=== PATIENT | male | born 1935 | race Two or more races ===

== ENCOUNTER 2016-05-24 11:54 | Emergency (ER) | payer MEDICARE, BC ==
[2016-05-24 12:59] LABS: Basophils % (A) 0 %; CH 29.7; CHCM 31.5; Eosinophils # (A) 0.1 k/uL (0-0.7); Eosinophils % (A) 3 %; HCT 40.4 % (39.0-53.0); HGB 12.7 gm/dL (13.0-17.5); Hypochromasia Slight; Luc # (Auto) 0.12; Luc % (Auto) 3; Lymphocytes # (A) 0.8 k/uL (1.0-4.8); Lymphocytes % (A) 19 %; MCH 29.9 pg (25.0-35.0); MCHC 31.6 g/dL (31.0-37.0); MCV 94.7 fL (80.0-100.0); Mean Platelet Volume 7.9; Monocytes # (A) 0.2 k/uL (0-1.0); Monocytes % (A) 5 %; Neutrophils # (A) 2.9 k/uL (1.3-7.7); Neutrophils % (A) 69 %; RBC 4.27 m/uL (4.30-5.90); RDW 13.8 % (11.5-15.5); WBC 4.2 k/uL (3.8-10.6); WBC (Perox) 4.12
[2016-05-24 13:07] LABS: Anion Gap 9 mmol/L; Blood Urea Nitrogen 21 mg/dL (9-20); Calcium 9.9 mg/dL (8.4-10.2); Carbon Dioxide 32 mmol/L (22-30); Chloride 103 mmol/L (98-107); Glucose 96 mg/dL (74-99); Non-African American GFR(MDRD) 59 (>60 ml/min/1.73 sqM); Partial Thromboplastin Time 32.1 sec (22.0-30.0); Potassium 4.5 mmol/L (3.5-5.1); Prothrombin Time 19.7 sec (9.0-12.0); Sodium 144 mmol/L (137-145)
--- NOTE | 2016-05-24 13:27 | US ---
EXAMINATION TYPE: US venous doppler duplex LE RT DATE OF EXAM: 05/24/2016 1:13 PM COMPARISON: NONE CLINICAL HISTORY: Pain. rashing and slight swelling in the right leg SIDE PERFORMED: Right VESSELS IMAGED: External Iliac Vein (EIV) Common Femoral Vein Deep Femoral Vein Greater Saphenous Vein * Femoral Vein Popliteal Vein Small Saphenous Vein * Proximal Calf Veins (* superficial vessels) TECHNOLOGIST IMPRESSION: wnl Right Leg: Negative for DVT IMPRESSION: Normal exam. No evidence of deep venous thrombosis in the left leg.
--- NOTE | 2016-05-24 13:55 | ED ---
Skin/Abscess/FB HPI - General Chief complaint: Skin/Abscess/Foreign Body Stated complaint: rash Time Seen by Provider: 05/24/16 12:25 Source: patient, RN notes reviewed Mode of arrival: ambulatory Limitations: no limitations - History of Present Illness Initial comments: 81-year-old male presents emergency Department chief complaint rash to his left hand has been there for approximately 2 weeks. Patient states that he put some Pily lotion which makes it feel better. Patient states it's not getting better and states it's not getting much worse. Patient states there is no pain to at this time. Denies spinning any chemicals or any brunson that area. Patient states that he did not use any new soaps lotions or detergents prior to it. Denies any other symptoms by the have a similar rash. He does state that his right leg is swollen in which he bumped his pryor a few days ago. Patient states it's swollen from there to his foot. He states he has. Minimal pain states it just feels achy. Patient denies any chest pain or shortness breath. Patient states she does take Coumadin for chronic atrial fibrillation. Patient states his most recent INR was 2.0. Patient states he has been taking as prescribed. Patient denies fever, chills. - Related Data Home Medications Medication Instructions Recorded Confirmed Levothyroxine Sodium [Synthroid] 50 mcg PO DAILY 09/13/13 05/24/16 Temazepam 30 mg PO HS 09/13/13 05/24/16 Acetaminophen Tab [Tylenol Tab] 650 mg PO BID PRN 05/24/16 05/24/16 Cholecalciferol [Vitamin D3] 2,000 unit PO DAILY 05/24/16 05/24/16 Ferrous Sulfate [Feosol] 325 mg PO DAILY 05/24/16 05/24/16 Warfarin [Coumadin] 2.5 mg PO FR 05/24/16 05/24/16 Warfarin [Coumadin] 5 mg PO SUMOTUWETHSA 05/24/16 05/24/16 Previous Rx's Medication Instructions Recorded Mupirocin 2% Oint [Bactroban 2% 1 applic TOPICAL TID #22 gm 05/24/16 Oint] Triamcinolone 0.1% Cream [Kenalog] 1 applicatio TOPICAL BID #15 gram 05/24/16 Allergies Allergy/AdvReac Type Severity Reaction Status Date / Time No Known Allergies Allergy Verified 05/24/16 13:20 Review of Systems ROS Statement: Those systems with pertinent positive or pertinent negative responses have been documented in the HPI. ROS Other: All systems not noted in ROS Statement are negative. Past Medical History Past Medical History: Atrial Fibrillation, GERD/Reflux, Hearing Disorder / Deafness, Thyroid Disorder Additional Past Medical History / Comment(s): HIATAL HERNIA History of Any Multi-Drug Resistant Organisms: None Reported Past Surgical History: Ear Surgery Additional Past Surgical History / Comment(s): STENT X2 IN LEFT EAR Past Anesthesia/Blood Transfusion Reactions: No Reported Reaction Past Psychological History: No Psychological Hx Reported Smoking Status: Former smoker Past Alcohol Use History: None Reported Past Drug Use History: None Reported General Exam Limitations: no limitations Course Vital Signs 05/24/16 11:59 Temperature 98.2 F Pulse Rate 68 Respiratory 20 Rate Blood Pressure 125/78 O2 Sat by Pulse 98 Oximetry Medical Decision Making - Lab Data Result diagrams: 05/24/16 12:48 05/24/16 12:48 Lab Results 05/24/16 05/24/16 05/24/16 Range/Units 12:48 12:48 12:48 WBC 4.2 (3.8-10.6) k/uL RBC 4.27 L (4.30-5.90) m/uL Hgb 12.7 L (13.0-17.5) gm/dL Hct 40.4 (39.0-53.0) % MCV 94.7 (80.0-100.0) fL MCH 29.9 (25.0-35.0) pg MCHC 31.6 (31.0-37.0) g/dL RDW 13.8 (11.5-15.5) % Plt Count 133 L (150-450) k/uL Neutrophils % 69 % Lymphocytes % 19 % Monocytes % 5 % Eosinophils % 3 % Basophils % 0 % Neutrophils # 2.9 (1.3-7.7) k/uL Lymphocytes # 0.8 L (1.0-4.8) k/uL Monocytes # 0.2 (0-1.0) k/uL Eosinophils # 0.1 (0-0.7) k/uL Basophils # 0.0 (0-0.2) k/uL Hypochromasia Slight PT 19.7 H (9.0-12.0) sec INR 2.0 (<1.1) APTT 32.1 H (22.0-30.0) sec Sodium 144 (137-145) mmol/L Potassium 4.5 (3.5-5.1) mmol/L Chloride 103 (98-107) mmol/L Carbon Dioxide 32 H (22-30) mmol/L Anion Gap 9 mmol/L BUN 21 H (9-20) mg/dL Creatinine 1.19 (0.66-1.25) mg/dL Est GFR (MDRD) Af Amer >60 (>60 ml/min/1.73 sqM) Est GFR (MDRD) Non-Af 59 (>60 ml/min/1.73 sqM) Glucose 96 (74-99) mg/dL Calcium 9.9 (8.4-10.2) mg/dL Disposition Clinical Impression: Hand dermatitis, Leg swelling Disposition: HOME SELF-CARE Condition: Stable Instructions: Dermatitis (ED) Additional Instructions: Please return to the Emergency Department if symptoms worsen or any other concerns. Prescriptions: Mupirocin 2% Oint [Bactroban 2% Oint] 1 applic TOPICAL TID #22 gm Triamcinolone 0.1% Cream [Kenalog] 1 applicatio TOPICAL BID #15 gram Time of Disposition: 13:54
[2016-05-24 14:28] VITALS: BP 166/72; PULSE 63; RESP 18; TEMP 98
== END 2016-05-24 14:47 | disposition home or self-care (01) ==
LOC: EC 11:54
DX: L30.9 Dermatitis, unspecified (principal); M79.89 Other specified soft tissue disorders; K21.9 Gastro-esophageal reflux disease without esophagitis; Z79.899 Other long term (current) drug therapy; I48.91 Unspecified atrial fibrillation; E07.9 Disorder of thyroid, unspecified; Z79.01 Long term (current) use of anticoagulants; Z87.891 Personal history of nicotine dependence
CPT/HCPCS: 36415; 80048; 85025; 85610; 85730; 99283

== ENCOUNTER 2016-09-07 15:37 | Observation (INO) | payer MEDICARE, BC ==
[2016-09-07] MEDS ORDERED: SODIUM CHLORIDE 0.9% 1,000 ML IV STA ×2 (15:46)
--- NOTE | 2016-09-07 15:48 | ED ---
General Adult HPI - General Stated complaint: Chest & Abdominal Pain Time Seen by Provider: 09/07/16 15:46 Source: RN notes reviewed, old records reviewed - History of Present Illness Initial comments: This is an 79-year-old male to the ER for evaluation different types of pain, chest pain about the about. Back left upper quadrant around his heart. Into his shoulder. Pain is worse with activity worse with movement. No fevers cough or congestion or travel history. Does have history of similar pain but unsure of all is the cause. At this time patient admits to mild shortness of breath worse when he tries to take a deep breath. No nausea vomiting or diarrhea. - Related Data Home Medications Medication Instructions Recorded Confirmed Levothyroxine Sodium [Synthroid] 50 mcg PO DAILY 09/13/13 09/07/16 Temazepam 30 mg PO HS 09/13/13 09/07/16 Acetaminophen Tab [Tylenol Tab] 650 mg PO BID PRN 05/24/16 09/07/16 Cholecalciferol [Vitamin D3] 2,000 unit PO DAILY 05/24/16 09/07/16 Ferrous Sulfate [Feosol] 325 mg PO Q48H 05/24/16 09/07/16 Warfarin [Coumadin] 5 mg PO HS 05/24/16 09/07/16 Allergies Allergy/AdvReac Type Severity Reaction Status Date / Time No Known Allergies Allergy Verified 09/07/16 20:26 Review of Systems ROS Statement: Those systems with pertinent positive or pertinent negative responses have been documented in the HPI. ROS Other: All systems not noted in ROS Statement are negative. Past Medical History Past Medical History: Atrial Fibrillation, GERD/Reflux, Hearing Disorder / Deafness, Thyroid Disorder Additional Past Medical History / Comment(s): HIATAL HERNIA History of Any Multi-Drug Resistant Organisms: None Reported Past Surgical History: Ear Surgery Additional Past Surgical History / Comment(s): STENT X2 IN LEFT EAR Past Anesthesia/Blood Transfusion Reactions: No Reported Reaction Past Psychological History: No Psychological Hx Reported Smoking Status: Former smoker Past Alcohol Use History: None Reported Past Drug Use History: None Reported - Past Family History Father Family Medical History: Cancer Brother(s) Family Medical History: Diabetes Mellitus General Exam General appearance: alert, in no apparent distress Head exam: Present: atraumatic, normocephalic, normal inspection Eye exam: Present: normal appearance, PERRL, EOMI. Absent: scleral icterus, conjunctival injection, periorbital swelling ENT exam: Present: normal exam, mucous membranes moist Neck exam: Present: normal inspection. Absent: tenderness, meningismus, lymphadenopathy Respiratory exam: Present: normal lung sounds bilaterally. Absent: respiratory distress, wheezes, rales, rhonchi, stridor Cardiovascular Exam: Present: regular rate, normal rhythm, normal heart sounds. Absent: systolic murmur, diastolic murmur, rubs, gallop, clicks GI/Abdominal exam: Present: soft, normal bowel sounds. Absent: distended, tenderness, guarding, rebound, rigid Extremities exam: Present: normal inspection, full ROM, normal capillary refill. Absent: tenderness, pedal edema, joint swelling, calf tenderness Back exam: Present: normal inspection Neurological exam: Present: alert, oriented X3, CN II-XII intact Psychiatric exam: Present: normal affect, normal mood Skin exam: Present: warm, dry, intact, normal color. Absent: rash Course Vital Signs 09/07/16 09/07/16 09/07/16 15:50 17:00 18:09 Temperature 98.8 F 98.0 F Pulse Rate 71 72 73 Respiratory 18 16 16 Rate Blood Pressure 221/98 165/77 170/84 O2 Sat by Pulse 98 100 99 Oximetry 09/07/16 19:28 Temperature 98.1 F Pulse Rate Respiratory Rate Blood Pressure O2 Sat by Pulse Oximetry EKG Findings - EKG Comments: EKG Findings:: EKG shows a rate of 68, QRS 94, QTC 391 Medical Decision Making - Lab Data Result diagrams: 09/08/16 09:17 09/07/16 16:05 Lab Results 09/07/16 09/07/16 09/07/16 Range/Units 16:05 16:05 16:05 WBC 6.0 (3.8-10.6) k/uL RBC 4.66 (4.30-5.90) m/uL Hgb 13.4 (13.0-17.5) gm/dL Hct 42.2 (39.0-53.0) % MCV 90.6 (80.0-100.0) fL MCH 28.9 (25.0-35.0) pg MCHC 31.9 (31.0-37.0) g/dL RDW 13.0 (11.5-15.5) % Plt Count 128 L (150-450) k/uL Neutrophils % 76 % Lymphocytes % 13 % Monocytes % 8 % Eosinophils % 1 % Basophils % 0 % Neutrophils # 4.6 (1.3-7.7) k/uL Lymphocytes # 0.8 L (1.0-4.8) k/uL Monocytes # 0.5 (0-1.0) k/uL Eosinophils # 0.1 (0-0.7) k/uL Basophils # 0.0 (0-0.2) k/uL PT (9.0-12.0) sec INR (<1.1) APTT (22.0-30.0) sec D-Dimer (<0.60) mg/L FEU Sodium 138 (137-145) mmol/L Potassium 4.8 (3.5-5.1) mmol/L Chloride 100 (98-107) mmol/L Carbon Dioxide 29 (22-30) mmol/L Anion Gap 9 mmol/L BUN 28 H (9-20) mg/dL Creatinine 1.23 (0.66-1.25) mg/dL Est GFR (MDRD) Af Amer >60 (>60 ml/min/1.73 sqM) Est GFR (MDRD) Non-Af 56 (>60 ml/min/1.73 sqM) Glucose 108 H (74-99) mg/dL Plasma Lactic Acid Saleem (0.7-2.0) mmol/L Calcium 10.6 H (8.4-10.2) mg/dL Phosphorus 3.6 (2.5-4.5) mg/dL Magnesium 1.5 L (1.6-2.3) mg/dL Total Bilirubin 1.3 (0.2-1.3) mg/dL AST 26 (17-59) U/L ALT 28 (21-72) U/L Alkaline Phosphatase 78 (38-126) U/L Total Creatine Kinase 128 (55-170) U/L CK-MB (CK-2) 5.9 H* (0.0-2.4) ng/mL CK-MB (CK-2) Rel Index 4.6 Troponin I <0.012 (0.000-0.034) ng/mL Total Protein 6.9 (6.3-8.2) g/dL Albumin 4.1 (3.5-5.0) g/dL Lipase 36 (23-300) U/L 09/07/16 09/07/16 09/07/16 Range/Units 16:05 16:05 16:05 WBC (3.8-10.6) k/uL RBC (4.30-5.90) m/uL Hgb (13.0-17.5) gm/dL Hct (39.0-53.0) % MCV (80.0-100.0) fL MCH (25.0-35.0) pg MCHC (31.0-37.0) g/dL RDW (11.5-15.5) % Plt Count (150-450) k/uL Neutrophils % % Lymphocytes % % Monocytes % % Eosinophils % % Basophils % % Neutrophils # (1.3-7.7) k/uL Lymphocytes # (1.0-4.8) k/uL Monocytes # (0-1.0) k/uL Eosinophils # (0-0.7) k/uL Basophils # (0-0.2) k/uL PT 17.1 H (9.0-12.0) sec INR 1.8 (<1.1) APTT 26.6 (22.0-30.0) sec D-Dimer <0.17 (<0.60) mg/L FEU Sodium (137-145) mmol/L Potassium (3.5-5.1) mmol/L Chloride (98-107) mmol/L Carbon Dioxide (22-30) mmol/L Anion Gap mmol/L BUN (9-20) mg/dL Creatinine (0.66-1.25) mg/dL Est GFR (MDRD) Af Amer (>60 ml/min/1.73 sqM) Est GFR (MDRD) Non-Af (>60 ml/min/1.73 sqM) Glucose (74-99) mg/dL Plasma Lactic Acid Saleem 1.0 (0.7-2.0) mmol/L Calcium (8.4-10.2) mg/dL Phosphorus (2.5-4.5) mg/dL Magnesium (1.6-2.3) mg/dL Total Bilirubin (0.2-1.3) mg/dL AST (17-59) U/L ALT (21-72) U/L Alkaline Phosphatase (38-126) U/L Total Creatine Kinase (55-170) U/L CK-MB (CK-2) (0.0-2.4) ng/mL CK-MB (CK-2) Rel Index Troponin I (0.000-0.034) ng/mL Total Protein (6.3-8.2) g/dL Albumin (3.5-5.0) g/dL Lipase (23-300) U/L Disposition Clinical Impression: Chest pain Disposition: ADMITTED IP TO THIS HOSP
[2016-09-07 16:20] LABS: Basophils % (A) 0 %; CH 29.3; CHCM 32.5; Eosinophils # (A) 0.1 k/uL (0-0.7); Eosinophils % (A) 1 %; HCT 42.2 % (39.0-53.0); HDW 2.77; HGB 13.4 gm/dL (13.0-17.5); Luc % (Auto) 2; Lymphocytes # (A) 0.8 k/uL (1.0-4.8); Lymphocytes % (A) 13 %; MCH 28.9 pg (25.0-35.0); MCHC 31.9 g/dL (31.0-37.0); MCV 90.6 fL (80.0-100.0); Mean Platelet Volume 7.2; Monocytes # (A) 0.5 k/uL (0-1.0); Monocytes % (A) 8 %; Neutrophils # (A) 4.6 k/uL (1.3-7.7); Neutrophils % (A) 76 %; RBC 4.66 m/uL (4.30-5.90); WBC (Perox) 5.72
[2016-09-07 16:27] LABS: ALT 28 U/L (21-72); AST 26 U/L (17-59); Alkaline Phosphatase 78 U/L (38-126); Anion Gap 9 mmol/L; Blood Urea Nitrogen 28 mg/dL (9-20); Calcium 10.6 mg/dL (8.4-10.2); Carbon Dioxide 29 mmol/L (22-30); Chloride 100 mmol/L (98-107); Glucose 108 mg/dL (74-99); Magnesium 1.5 mg/dL (1.6-2.3); Non-African American GFR(MDRD) 56 (>60 ml/min/1.73 sqM); Phosphorous 3.6 mg/dL (2.5-4.5); Potassium 4.8 mmol/L (3.5-5.1); Sodium 138 mmol/L (137-145); Total Bilirubin 1.3 mg/dL (0.2-1.3); Total Protein 6.9 g/dL (6.3-8.2)
[2016-09-07 16:32] LABS: INR 1.8 (<1.1); Partial Thromboplastin Time 26.6 sec (22.0-30.0); Prothrombin Time 17.1 sec (9.0-12.0)
--- NOTE | 2016-09-07 16:48 | XR ---
EXAMINATION TYPE: XR abdomen acute w cxr DATE OF EXAM: 09/07/2016 4:39 PM CLINICAL HISTORY: Chest and abdominal pain, history of hypertension. TECHNIQUE: Single frontal view of chest is obtained. Supine and upright views of the abdomen are acq uired. COMPARISON: Chest x-ray January 14, 2012. FINDINGS: Underlying emphysematous change is present. Cardiac silhouette size appears mildly enlarged . Retrocardiac opacity consistent with large hiatal hernia or intrathoracic stomach is redemonstrated . Adjacent left basilar atelectatic change is present. Osseous structures are intact. Gas is noted in nondistended small bowel loops. Gas and fecal material is seen in nondistended colon . No pneumoperitoneum, visceromegaly, or suspicious calcification is identified. The osseous struc tures are intact. IMPRESSION: 1. Cardiomegaly and chronic emphysematous change without suspicious acute pulmonary process. 2. Overall nonspecific but likely nonobstructive bowel gas pattern. Large hiatal hernia redemonstrate d.
[2016-09-07 16:50] LABS: Creatine Kinase 128 U/L (55-170)
[2016-09-07] MEDS ORDERED: MORPHINE SULFATE 4 MG/ML SYRINGE IVP STA (17:02)
[2016-09-07 17:03] LABS: Troponin I <0.012 ng/mL (0.000-0.034)
[2016-09-07 17:05] LABS: Creatine Kinase MB 5.9 ng/mL (0.0-2.4)
[2016-09-07] MEDS ORDERED: RX INFO: IV CONTRAST WAS GIVEN 1 EACH MISC MISCELLANE PRN (17:09)
--- NOTE | 2016-09-07 18:26 | CT ---
EXAMINATION TYPE: CT angio chest DATE OF EXAM: 09/07/2016 5:55 PM COMPARISON: NONE HISTORY: Left sided chest pressure and abdominal pain. CT DLP: 1774.40 mGycm. Automated Exposure Control for Dose Reduction was Utilized. CONTRAST: CTA scan of the thorax is performed with IV Contrast, patient injected with 80 mL of Visipaque 320, p ulmonary embolism protocol. MIP Images are created on CT scanner and reviewed. FINDINGS: LUNGS: Moderate paraseptal emphysematous changes are seen. There is a partial intrathoracic stomach w ith herniation of abdominal fat into the mediastinum creating segmental left lower lung atelectasis. There are low lung volumes with elevation of both hemidiaphragms. Heart size is within normal limits. Biapical pleural-parenchymal thickening is noted. There is no pleural effusion or pneumothorax seen. The tracheobronchial tree is patent. MEDIASTINUM: There is satisfactory enhancement of the pulmonary artery and its branches, there is no CT evidence for pulmonary embolism. There are no greater than 1 cm hilar or mediastinal lymph nodes. No cardiomegaly or pericardial effusion is seen. OTHER: No additional significant abnormality is seen. IMPRESSION: 1. No evidence of pulmonary embolus. 2. Moderate paraseptal emphysematous changes. 3. 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
--- NOTE | 2016-09-07 18:31 | CT ---
EXAMINATION TYPE: CT abdomen pelvis w con DATE OF EXAM: 09/07/2016 5:55 PM COMPARISON: NONE HISTORY: Left sided chest pressure and abdominal pain. CT DLP: 1774.40 mGycm Automated exposure control for dose reduction was used. TECHNIQUE: Helical acquisition of images was performed from the lung bases through the pelvis. CONTRAST: Performed without Oral Contrast and with IV Contrast, patient injected with 80 mL of Visipaque 320. FINDINGS: LUNG BASES: As described on the CT PE study of the same day. Intrathoracic stomach and left lower lob e segmental atelectasis. LIVER/GB: No significant abnormality is appreciated. PANCREAS: There is pancreatic atrophy. SPLEEN: No significant abnormality is seen. ADRENALS: No significant abnormality is seen. KIDNEYS: Left upper pole 2.0 cm renal cyst. Otherwise the kidneys enhance symmetrically. FREE AIR: No free air is visualized. RETROPERITONEAL ADENOPATHY: None visualized REPRODUCTIVE ORGANS: The prostate gland is heterogenous but nonenlarged. URINARY BLADDER: No significant abnormality is seen. PELVIC ADENOPATHY: None visualized. OSSEOUS STRUCTURES: Degenerative changes are present of the thoracolumbar and lumbosacral spine as v isualized. BOWEL: Sigmoid diverticulosis without evidence of diverticulitis. OTHER: Abdominal aorta is of normal course and caliber with atheromatous changes of the abdominal aor ta and its branches. There is an umbilical hernia containing fat with a wide neck measuring approxima tely 2.6 cm. IMPRESSION: 1. NO ACUTE INTRA-ABDOMINAL PROCESS 2. 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
--- NOTE | 2016-09-07 18:58 | ED ---
Medical Decision Making - Medical Decision Making CAT scan shows no pulmonary embolism. I went back in to see the patient he stated that he was not currently having chest pain but it was concerning him earlier in the evening. I spoke with others are Dr. Dudley agreed to admit the patient. He was in agreement not to start heparin on the patient. - Lab Data Result diagrams: 09/07/16 16:05 09/07/16 16:05 Lab Results 09/07/16 09/07/16 09/07/16 Range/Units 16:05 16:05 16:05 WBC 6.0 (3.8-10.6) k/uL RBC 4.66 (4.30-5.90) m/uL Hgb 13.4 (13.0-17.5) gm/dL Hct 42.2 (39.0-53.0) % MCV 90.6 (80.0-100.0) fL MCH 28.9 (25.0-35.0) pg MCHC 31.9 (31.0-37.0) g/dL RDW 13.0 (11.5-15.5) % Plt Count 128 L (150-450) k/uL Neutrophils % 76 % Lymphocytes % 13 % Monocytes % 8 % Eosinophils % 1 % Basophils % 0 % Neutrophils # 4.6 (1.3-7.7) k/uL Lymphocytes # 0.8 L (1.0-4.8) k/uL Monocytes # 0.5 (0-1.0) k/uL Eosinophils # 0.1 (0-0.7) k/uL Basophils # 0.0 (0-0.2) k/uL PT (9.0-12.0) sec INR (<1.1) APTT (22.0-30.0) sec D-Dimer (<0.60) mg/L FEU Sodium 138 (137-145) mmol/L Potassium 4.8 (3.5-5.1) mmol/L Chloride 100 (98-107) mmol/L Carbon Dioxide 29 (22-30) mmol/L Anion Gap 9 mmol/L BUN 28 H (9-20) mg/dL Creatinine 1.23 (0.66-1.25) mg/dL Est GFR (MDRD) Af Amer >60 (>60 ml/min/1.73 sqM) Est GFR (MDRD) Non-Af 56 (>60 ml/min/1.73 sqM) Glucose 108 H (74-99) mg/dL Plasma Lactic Acid Saleem (0.7-2.0) mmol/L Calcium 10.6 H (8.4-10.2) mg/dL Phosphorus 3.6 (2.5-4.5) mg/dL Magnesium 1.5 L (1.6-2.3) mg/dL Total Bilirubin 1.3 (0.2-1.3) mg/dL AST 26 (17-59) U/L ALT 28 (21-72) U/L Alkaline Phosphatase 78 (38-126) U/L Total Creatine Kinase 128 (55-170) U/L CK-MB (CK-2) 5.9 H* (0.0-2.4) ng/mL CK-MB (CK-2) Rel Index 4.6 Troponin I <0.012 (0.000-0.034) ng/mL Total Protein 6.9 (6.3-8.2) g/dL Albumin 4.1 (3.5-5.0) g/dL Lipase 36 (23-300) U/L 09/07/16 09/07/16 09/07/16 Range/Units 16:05 16:05 16:05 WBC (3.8-10.6) k/uL RBC (4.30-5.90) m/uL Hgb (13.0-17.5) gm/dL Hct (39.0-53.0) % MCV (80.0-100.0) fL MCH (25.0-35.0) pg MCHC (31.0-37.0) g/dL RDW (11.5-15.5) % Plt Count (150-450) k/uL Neutrophils % % Lymphocytes % % Monocytes % % Eosinophils % % Basophils % % Neutrophils # (1.3-7.7) k/uL Lymphocytes # (1.0-4.8) k/uL Monocytes # (0-1.0) k/uL Eosinophils # (0-0.7) k/uL Basophils # (0-0.2) k/uL PT 17.1 H (9.0-12.0) sec INR 1.8 (<1.1) APTT 26.6 (22.0-30.0) sec D-Dimer <0.17 (<0.60) mg/L FEU Sodium (137-145) mmol/L Potassium (3.5-5.1) mmol/L Chloride (98-107) mmol/L Carbon Dioxide (22-30) mmol/L Anion Gap mmol/L BUN (9-20) mg/dL Creatinine (0.66-1.25) mg/dL Est GFR (MDRD) Af Amer (>60 ml/min/1.73 sqM) Est GFR (MDRD) Non-Af (>60 ml/min/1.73 sqM) Glucose (74-99) mg/dL Plasma Lactic Acid Saleem 1.0 (0.7-2.0) mmol/L Calcium (8.4-10.2) mg/dL Phosphorus (2.5-4.5) mg/dL Magnesium (1.6-2.3) mg/dL Total Bilirubin (0.2-1.3) mg/dL AST (17-59) U/L ALT (21-72) U/L Alkaline Phosphatase (38-126) U/L Total Creatine Kinase (55-170) U/L CK-MB (CK-2) (0.0-2.4) ng/mL CK-MB (CK-2) Rel Index Troponin I (0.000-0.034) ng/mL Total Protein (6.3-8.2) g/dL Albumin (3.5-5.0) g/dL Lipase (23-300) U/L Disposition Clinical Impression: Chest pain Disposition: ADMITTED IP TO THIS HOSP Referrals: Tanika Dudley MD [Primary Care Provider] - 1-2 days Time of Disposition: 18:58
[2016-09-07] MEDS ORDERED: NITROGLYCERIN SL TABS 0.4 MG TAB SUBLINGUAL PRN (19:01)
[2016-09-07 20:39] VITALS: BMI 23.7
[2016-09-07] MEDS: ACETAMINOPHEN TAB 325 MG TAB PO PRN (21:22)
[2016-09-07] MEDS ORDERED: ACETAMINOPHEN TAB 325 MG TAB PO PRN (22:23)
[2016-09-07] MEDS ORDERED: MAGNESIUM SULFATE-D5W PMX 1 GM in DEXTROSE/WATER 1 100ML.BAG IVPB ONE (22:25)
[2016-09-07] MEDS ORDERED: WARFARIN 5 MG TAB PO SCH (22:30)
[2016-09-07] MEDS ORDERED: TEMAZEPAM 30 MG CAP PO SCH (22:30)
[2016-09-07] MEDS: NITROGLYCERIN OINT 1 INCH/GM PACKET TOPICAL SCH (23:42)
[2016-09-08] LABS: Troponin I 0.016 ng/mL (0.000-0.034)
[2016-09-08 00:04] LABS: Creatine Kinase MB 5.8 ng/mL (0.0-2.4)
[2016-09-08 05:27] LABS: Cholesterol 126 mg/dL (<200); HDL Cholesterol 43 mg/dL (40-60); Triglycerides 83 mg/dL (<150)
[2016-09-08 05:27] LABS: Troponin I 0.013 ng/mL (0.000-0.034)
[2016-09-08 05:35] LABS: Creatine Kinase MB 4.5 ng/mL (0.0-2.4)
[2016-09-08] MEDS: NITROGLYCERIN OINT 1 INCH/GM PACKET TOPICAL SCH (06:28)
[2016-09-08] MEDS ORDERED: LEVOTHYROXINE 50 MCG TAB PO SCH (06:30)
[2016-09-08] MEDS: ACETAMINOPHEN TAB 325 MG TAB PO PRN (08:27)
[2016-09-08] MEDS ORDERED: WARFARIN 1 MG TAB PO ONE (08:30)
--- NOTE | 2016-09-08 08:52 | CONS ---
DATE OF CONSULTATION: This is an 81-year-old male patient of Dr. Dudley and sees Dr. Rodriges for atrial fibrillation. He comes in with predominantly left-sided abdominal discomfort. The ER notes state chest pain and abdominal pain, but when we actually asked the patient whether he is having chest pain or abdominal pain and what is his main problem, he points to the left side of the belly and he says, moves around, but mostly in the left side of the abdomen. He does not feel good when he has these episodes and he burps a lot at that time. His bowels are slightly irregular. but he has not had any breathing issues. His belly is certainly not tender. He does not have any chest wall tenderness. REVIEW OF SYSTEMS: No fever, chills or rigors. No cough or expectoration. No nausea, vomiting, or diarrhea. No hematuria, dysuria. No recent strokes or seizures. Past medical history of atrial fibrillation, hiatus hernia, thyroid disorder. SOCIAL HISTORY: He is a former smoker. ALLERGIES: No known drug allergies. Medications include Synthroid and warfarin. On examination, his vitals are stable. His blood pressure is normal 115/70 mmHg, pulse rate is in the 60s, afebrile, 97.7 degrees Fahrenheit. Head and neck examination is normal. Heart sounds S1, S2 are normal. No murmurs or gallops. No chest wall tenderness. Abdomen is soft, nontender. No guarding, no rigidity. Extremities are warm. No edema. A 12-lead ECG shows rate-controlled atrial fibrillation. Labs are reviewed. His white count is normal. His hemoglobin is normal. INR is subtherapeutic at 1.8. Cardiac enzymes are normal. CPK is elevated. MB is elevated. Troponins are normal. HDL is 43, LDL is 66, total cholesterol 126. Lipase is 36. IMPRESSION: 1. Vague abdominal discomfort. The patient cannot really describe. 2. Normal cardiac enzymes. No evidence for myocardial infarction. 3. Persistent rate controlled atrial fibrillation. A recent 24-hour Holter monitor in the office. Will get the records. Last ( ) he had a stress test, I will get the records from the office. I do not think this is cardiac. He is certainly not complaining of chest discomfort. His INR is subtherapeutic and the only consideration from a cardiovascular standpoint with vague abdominal discomforts would be recurrent embolism lodging in the abdominal vasculature because INR is subtherapeutic. As he simply does not have an acute abdomen, I will keep the INR therapeutic. His Coumadin dose should be adjusted upwards to 6 mg p.o. q.h.s. I will repeat his INR once again. From a cardiac standpoint, his INR should be maintained between 2 and 3 and further medical workup per Dr. Dudley. I will get the records from the office including the last stress test, echo and Holter monitor.
[2016-09-08] MEDS ORDERED: ASPIRIN 81 MG CHEW PO SCH (09:00)
[2016-09-08] MEDS ORDERED: ASPIRIN 325 MG TAB PO SCH (09:00)
[2016-09-08 10:18] LABS: INR 1.7 (<1.1); Prothrombin Time 16.7 sec (9.0-12.0)
[2016-09-08] MEDS ORDERED: HEPARIN SODIUM,PORCINE 5,000 UNIT/ML 1 ML VIAL IV PRN (10:43)
[2016-09-08 10:57] LABS: Basophils % (A) 0 %; CH 28.5; CHCM 30.7; Eosinophils # (A) 0.1 k/uL (0-0.7); Eosinophils % (A) 2 %; HCT 41.6 % (39.0-53.0); HDW 2.53; HGB 12.9 gm/dL (13.0-17.5); Hypochromasia Moderate; Luc % (Auto) 2; Lymphocytes # (A) 0.9 k/uL (1.0-4.8); Lymphocytes % (A) 16 %; MCH 28.8 pg (25.0-35.0); MCHC 30.9 g/dL (31.0-37.0); MCV 93.3 fL (80.0-100.0); Mean Platelet Volume 7.8; Monocytes # (A) 0.4 k/uL (0-1.0); Monocytes % (A) 7 %; Neutrophils # (A) 4.2 k/uL (1.3-7.7); Neutrophils % (A) 73 %; RBC 4.46 m/uL (4.30-5.90); RDW 13.3 % (11.5-15.5); WBC 5.7 k/uL (3.8-10.6); WBC (Perox) 5.76
[2016-09-08] MEDS ORDERED: HEPARIN SODIUM,PORCINE/D5W PMX 25,000 UNIT in DEXTROSE/WATER 1 500ML.BAG IV SCH (11:00)
[2016-09-08] MEDS ORDERED: CHOLECALCIFEROL 1,000 UNIT TAB PO SCH (12:00)
[2016-09-08 16:28] VITALS: BP 140/81; PULSE 71; RESP 16; TEMP 97.9
--- NOTE | 2016-09-08 17:48 | P.HPIM ---
History of Present Illness H&P Date: 09/08/16 Chief Complaint: Chest pain and epigastric pain Enrrique Cross is an 79-year-old male who presented to the ED for evaluation of chest pain and epigastric pain. Pain is worse with activity worse with movement. No fevers cough or congestion or travel history. At this time patient admits to mild shortness of breath worse when he tries to take a deep breath. No nausea vomiting or diarrhea. Patient has a known history of atrial fibrillation and is maintained on Coumadin his INR is subtherapeutic at 1.8 Past Medical History Past Medical History: Atrial Fibrillation, GERD/Reflux, Hearing Disorder / Deafness, Thyroid Disorder Additional Past Medical History / Comment(s): HIATAL HERNIA History of Any Multi-Drug Resistant Organisms: None Reported Past Surgical History: Ear Surgery Additional Past Surgical History / Comment(s): STENT X2 IN LEFT EAR Past Anesthesia/Blood Transfusion Reactions: No Reported Reaction Past Psychological History: No Psychological Hx Reported Smoking Status: Former smoker Past Alcohol Use History: None Reported Past Drug Use History: None Reported - Past Family History Father Family Medical History: Cancer Brother(s) Family Medical History: Diabetes Mellitus Medications and Allergies Home Medications Medication Instructions Recorded Confirmed Type Levothyroxine Sodium [Synthroid] 50 mcg PO DAILY 09/13/13 09/07/16 History Temazepam 30 mg PO HS 09/13/13 09/07/16 History Acetaminophen Tab [Tylenol Tab] 650 mg PO BID PRN 05/24/16 09/07/16 History Cholecalciferol [Vitamin D3] 2,000 unit PO DAILY 05/24/16 09/07/16 History Ferrous Sulfate [Feosol] 325 mg PO Q48H 05/24/16 09/07/16 History Warfarin [Coumadin] 5 mg PO HS 05/24/16 09/07/16 History Allergies Allergy/AdvReac Type Severity Reaction Status Date / Time No Known Allergies Allergy Verified 09/07/16 20:26 Physical Exam Vitals: Vital Signs Temp Pulse Pulse Resp BP BP Pulse Ox 09/08/16 16:00 97.9 F 71 16 140/81 97 09/08/16 12:00 97.8 F 69 18 116/67 99 09/08/16 08:00 97.5 F L 67 18 120/72 95 09/08/16 04:00 97.7 F 66 18 115/70 98 09/08/16 00:00 70 16 09/07/16 23:47 98.1 F 70 16 135/73 94 L 09/07/16 20:00 97.9 F 66 18 170/85 100 09/07/16 19:28 98.1 F 09/07/16 18:09 73 16 170/84 99 Intake and Output 09/08/16 09/08/16 09/08/16 06:59 14:59 22:59 Intake Total 900 236 Balance 900 236 Intake: Intake, IV Titration 800 Amount Sodium Chloride 0.9% 1, 800 000 ml @ 100 mls/hr IV . Q10H STA Rx#:[id number] Oral 100 236 Other: Voiding Method Toilet Toilet # Voids 2 In general patient is alert and oriented 3 in no apparent distress HEENT head normocephalic and atraumatic Neck is supple no JVD no goiter no lymphadenopathy Chest exam reveals a few scattered rhonchi no wheezing Cardiac exam reveals regular heart sounds S1 and S2 with mild tachycardia no gallops no murmurs Abdomen is soft nontender no organomegaly Extremity exam reveals no edema no cyanosis or clubbing Results CBC & Chem 7: 09/08/16 09:17 09/07/16 16:05 Labs: Abnormal Lab Results - Last 24 Hours (Table) 09/07/16 09/08/16 09/08/16 Range/Units 22:32 04:05 09:17 Hgb (13.0-17.5) gm/dL MCHC (31.0-37.0) g/dL Plt Count (150-450) k/uL Lymphocytes # (1.0-4.8) k/uL PT 16.7 H (9.0-12.0) sec Total Creatine Kinase 329 H (55-170) U/L CK-MB (CK-2) 5.8 H* 4.5 H* (0.0-2.4) ng/mL 09/08/16 Range/Units 09:17 Hgb 12.9 L (13.0-17.5) gm/dL MCHC 30.9 L (31.0-37.0) g/dL Plt Count 141 L (150-450) k/uL Lymphocytes # 0.9 L (1.0-4.8) k/uL PT (9.0-12.0) sec Total Creatine Kinase (55-170) U/L CK-MB (CK-2) (0.0-2.4) ng/mL Assessment and Plan Plan: #1 Chest pain serial EKGs and cardiac enzymes are ordered, no evidence of myocardial infarction so far, cardiology consult requested #2 Large hiatal hernia may be responsible for patient symptoms #3 Underlying history of atrial fibrillation #4 INR subtherapeutic on presentation at this time patient is admitted to 24 hour observation started on IV Heparin, cardiology consult requested, will follow, adjust coumadin dose
--- NOTE | 2016-09-08 17:51 | P.DS ---
Providers Date of admission: 09/07/16 19:01 Expected date of discharge: 09/08/16 Attending physician: Tanika Dudley Consults: 09/07/16 19:01 Consult Physician Urgent Consulting Provider: [facility] Consult Reason/Comments: Chest pain Do you want consulting provider notified?: Yes Primary care physician: Tanika Luis Enrique [facility] Hospital Course: Diagnosis on discharge #1 episode of chest pain myocardial infarction ruled out #2 large hiatal hernia was large part of the stomach sliding up in the chest #3 underlying history of atrial fibrillation #4 INR subtherapeutic on admission at 1.8 Hospital course Patient is an 81-year-old male was admitted to [facility] through emergency room after presenting with an episode of chest pain and epigastric pain. Serial EKGs and cardiac enzymes did not reveal any evidence of acute myocardial infarction. Patient was monitored for 24 hours. His pain resolved Computed tomography scan of the chest and abdomen revealed evidence of large hiatal hernia with large parts of his stomach sliding up in the chest causing mild atelectasis. Patient was evaluated by cardiology and was cleared for discharge INR on presentation was slightly subtherapeutic at 1.8, his dose of Coumadin at home was 5 mg he was given 7.5 mg of Coumadin on 09/08/2016, and subsequently his dose will be increased at home to 6 mg daily He will be followed in our office within 1 week for further evaluation Plan - Discharge Summary Discharge Medication List Levothyroxine Sodium [Synthroid] 50 mcg PO DAILY 09/13/13 [History] Temazepam 30 mg PO HS 09/13/13 [History] Acetaminophen Tab [Tylenol Tab] 650 mg PO BID PRN 05/24/16 [History] Cholecalciferol [Vitamin D3] 2,000 unit PO DAILY 05/24/16 [History] Ferrous Sulfate [Feosol] 325 mg PO Q48H 05/24/16 [History] Warfarin [Coumadin] 5 mg PO HS 05/24/16 [History] Follow up Appointment(s)/Referral(s): Tanika Dudley MD [Primary Care Provider] - 1-2 days
[2016-09-08] MEDS ORDERED: WARFARIN 7.5 MG TAB PO ONE (18:00)
[2016-09-08] MEDS ORDERED: WARFARIN 3 MG TAB PO SCH (21:00)
[2016-09-09] MEDS ORDERED: FERROUS SULFATE 325 MG TAB PO SCH (12:00)
== END 2016-09-08 18:45 | disposition home or self-care (01) ==
LOC: EC 15:37 → 3OBS 19:01
PROVIDERS: ADMIT Internal Medicine; ATTEND Internal Medicine
DX: R07.9 Chest pain, unspecified (principal); R10.13 Epigastric pain; R06.02 Shortness of breath; K44.9 Diaphragmatic hernia without obstruction or gangrene; R79.1 Abnormal coagulation profile; I48.1 Persistent atrial fibrillation; H91.90 Unspecified hearing loss, unspecified ear; E07.9 Disorder of thyroid, unspecified; Z79.899 Other long term (current) drug therapy; Z79.01 Long term (current) use of anticoagulants; Z87.891 Personal history of nicotine dependence; Z83.3 Family history of diabetes mellitus
CPT/HCPCS: 96361 ×3; 96365; 96366; 96367; 96374; 96375; 99285; 36415; 93005; 85379; 80061; 80053; 82550 ×2; 82553 ×2; 83605; 83690; 83735; 84100; 84484 ×2; 85025 ×2; 85610 ×2; 85730 ×2; 74022; 71275; 74177; G0378 ×2; J2270; Q9967; J1644; J3475

== ENCOUNTER 2016-10-09 08:46 | Day surgery (SDC) | payer MEDICARE, BC ==
--- NOTE | 2016-10-01 17:14 | P.GSHP ---
History of Present Illness H&P Date: 10/09/16 Chief Complaint: Chest pain Patient recently has had complaints of chest pains. He had a cardiac workup that was negative. He is known to have a large hiatal hernia for the last 15 years or so. He has had intermittent episodes of dysphagia. Denies any significant reflux symptoms. CAT scan shows a moderate to large hiatal hernia. Denies rectal bleeding or melena. He is not taking any antacids. He is having some pain also in the upper abdomen particularly left upper quadrant. Symptoms aggravated by bending over. Past Medical History Past Medical History: Atrial Fibrillation, GERD/Reflux, Hearing Disorder / Deafness, Thyroid Disorder Additional Past Medical History / Comment(s): HIATAL HERNIA History of Any Multi-Drug Resistant Organisms: None Reported Past Surgical History: Ear Surgery Additional Past Surgical History / Comment(s): STENT X2 IN LEFT EAR Past Anesthesia/Blood Transfusion Reactions: No Reported Reaction Past Psychological History: No Psychological Hx Reported Smoking Status: Former smoker Past Alcohol Use History: None Reported Past Drug Use History: None Reported - Past Family History Father Family Medical History: Cancer Brother(s) Family Medical History: Diabetes Mellitus Medications and Allergies Home Medications Medication Instructions Recorded Confirmed Type Levothyroxine Sodium [Synthroid] 50 mcg PO DAILY 09/13/13 09/07/16 History Temazepam 30 mg PO HS 09/13/13 09/07/16 History Acetaminophen Tab [Tylenol] 650 mg PO BID PRN 05/24/16 09/07/16 History Cholecalciferol [Vitamin D3] 2,000 unit PO DAILY 05/24/16 09/07/16 History Ferrous Sulfate [Iron (65 MG 325 mg PO Q48H 05/24/16 09/07/16 History Elemental)] Allergies Allergy/AdvReac Type Severity Reaction Status Date / Time No Known Allergies Allergy Verified 09/07/16 20:26 Surgical - Exam Physical exam: General: Well-developed, well-nourished HEENT: Normocephalic, sclerae nonicteric Abdomen: Nontender, nondistended Extremities: No edema Neuro: Alert and oriented Assessment and Plan (1) Chest pain Narrative/Plan: We'll proceed with upper endoscopy on 10/09. Status: Acute
[2016-10-06 15:28] VITALS: BMI 22.5
[~2016-10-09 08:46] MED LIST: LACTATED RINGERS 1,000 ML IV SCH; LIDOCAINE 1% 20 ML VIAL (10MG/ML) FOR IV START INTRADERMA PRN
[2016-10-09 10:01] VITALS: RESP 16; TEMP 97
[2016-10-09] MEDS ORDERED: PROPOFOL 10 MG/ML 20 ML VIAL IV ONE (10:33)
--- NOTE | 2016-10-09 10:52 | P.PCN ---
Date of Procedure: 10/09/16 Preoperative Diagnosis: Postoperative Diagnosis: Procedure(s) Performed: Preoperative Dx: Chest pain Postoperative Dx: Gastritis, hiatal hernia, distal esophagitis Procedure: EGD with Bx Anesthesia: Sedation Endoscopist: Dr. Alvarado Specimens: Antrum, distal esophagus Endoscopic Procedure: The patient was on the endoscopy table in the left decubitus position. The Olympus gastroscope was inserted into the oropharynx and passed under direct visualization to the region of the third portion of the duodenum. From that point the scope was slowly withdrawn inspecting all surfaces carefully. There were no neoplastic inflammatory or polypoid lesions throughout the duodenum. The pylorus was widely patent. The stomach was carefully inspected. There was mild gastritis present. A biopsy of the antrum took place to rule out H. pylori. The GE junction was present at 39-40 cm. There was tortuosity of the stomach consistent with the patient's CAT scan showing a intra-thoracic stomach. At the GE junction there was noted be mild inflammation and biopsies taken. The remainder the esophagus appear normal. The patient was then taken to the recovery room in stable condition per anesthesia guidelines. Recommendations: Await biopsy results. Continue antiacid therapy. Options of hiatal hernia repair will be discussed with the patient. Implants: Indications for Procedure: Operative Findings: Description of Procedure:
[2016-10-09 11:17] VITALS: BP 141/89; PULSE 93
== END 2016-10-09 11:48 | disposition home or self-care (01) ==
LOC: ORWHC2ENDO 08:46
PROVIDERS: ATTEND Surgery
DX: K29.50 Unspecified chronic gastritis without bleeding (principal); K21.0 Gastro-esophageal reflux disease with esophagitis; K44.9 Diaphragmatic hernia without obstruction or gangrene; I48.91 Unspecified atrial fibrillation; E07.9 Disorder of thyroid, unspecified; Z79.899 Other long term (current) drug therapy; Z79.01 Long term (current) use of anticoagulants; Z79.82 Long term (current) use of aspirin; Z87.891 Personal history of nicotine dependence
CPT/HCPCS: 88305; 88312; 88342; 43239; J2704

== ENCOUNTER → 2016-11-26 | Outpatient (CLI) | payer MEDICARE, BC ==
--- NOTE | 2016-11-26 11:35 | FL ---
EXAMINATION TYPE: FL barium swallow DATE OF EXAM: 11/26/2016 COMPARISON: CT 09/07/2016 HISTORY: Abnormal CT examination TECHNIQUE: A double contrast esophagram with limited imaging of the stomach study is performed. FINDINGS: The gastroesophageal junction appears to be at or just above the diaphragm. The entire stom ach appears to be rotated and within the retrocardiac region. No obstruction or hesitancy passing thr ough the stomach is evident. This exam is compared with the CT of 09/07/2016. 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 Given the positioning of the low-lying gastroesophageal junction in the position in the stomach, effectively, a paraesophageal hernia should be considered. IMPRESSIONS: 1. Morgagni hernia. Physiologically, this could be similar to a paraesophageal hernia. No obstruction is evident at this time.
== END | disposition home or self-care (01) ==
LOC: RADFLMAIN 09:26
PROVIDERS: ATTEND Surgery
DX: Q79.0 Congenital diaphragmatic hernia (principal); R13.12 Dysphagia, oropharyngeal phase
CPT/HCPCS: 74220

== ENCOUNTER 2018-11-11 09:57 | Emergency (ER) | payer MEDICARE, BC ==
--- NOTE | 2018-11-11 10:36 | ED ---
General Adult HPI - General Chief complaint: Chest Pain Stated complaint: Hernia Time Seen by Provider: 11/11/18 10:20 Source: patient, family, RN notes reviewed Mode of arrival: ambulatory Limitations: no limitations - History of Present Illness Initial comments: Patient is a pleasant 83-year-old male presenting to the emergency Department with complaints of discomfort in his chest. Patient states he has had this discomfort for a couple of years now associated with hiatal hernia. Patient states he did go to [facility] over one year ago. Patient was planned to have surgery for his hiatal hernia. Patient states he was told her before months however did not hear back from them until year. Patient states he is still waiting to hear back from the next step regarding this. Patient states this is been urinating half approximately now. Patient states discomfort is similar to previous discomfort with hiatal hernia however is getting worse. Usually discomfort is worse in the evenings. Patient has decreased oral intake. Patient has lost approximately 30 pounds in the past month. Patient complains of pressure in the chest. Patient states there may be some mild shortness of breath. No nausea. No diaphoresis. - Related Data Home Medications Medication Instructions Recorded Confirmed Levothyroxine Sodium [Synthroid] 50 mcg PO DAILY 09/13/13 11/11/18 Temazepam 30 mg PO HS 09/13/13 11/11/18 Acetaminophen Tab [Tylenol] 650 mg PO BID PRN 05/24/16 11/11/18 Cholecalciferol [Vitamin D3 (25 2,000 unit PO DAILY 05/24/16 11/11/18 Mcg = 1000 Iu)] Ferrous Sulfate [Iron (65 MG 325 mg PO Q48H 05/24/16 11/11/18 Elemental)] Aspirin 81 mg PO DAILY 10/06/16 11/11/18 Warfarin Sodium 6 mg PO HS 10/09/16 11/11/18 Previous Rx's Medication Instructions Recorded Pantoprazole Sodium [Protonix] 40 mg PO DAILY #30 tablet. 09/08/16 Allergies Allergy/AdvReac Type Severity Reaction Status Date / Time No Known Allergies Allergy Verified 11/11/18 10:38 Review of Systems ROS Statement: Those systems with pertinent positive or pertinent negative responses have been documented in the HPI. ROS Other: All systems not noted in ROS Statement are negative. Constitutional: Denies: fever Eyes: Denies: eye pain ENT: Denies: ear pain Respiratory: Denies: cough Cardiovascular: Reports: chest pain Endocrine: Denies: fatigue Gastrointestinal: Denies: vomiting Genitourinary: Denies: dysuria Musculoskeletal: Denies: back pain Skin: Denies: rash Neurological: Denies: weakness Past Medical History Past Medical History: Atrial Fibrillation, GERD/Reflux, Osteoarthritis (OA), Thyroid Disorder Additional Past Medical History / Comment(s): HIATAL HERNIA, irregular heartbeat, History of Any Multi-Drug Resistant Organisms: None Reported Past Surgical History: Ear Surgery Additional Past Surgical History / Comment(s): STENT X 3 IN LEFT EAR, khadra cataracts Past Anesthesia/Blood Transfusion Reactions: Motion Sickness Past Psychological History: No Psychological Hx Reported Smoking Status: Former smoker - Past Family History Father Family Medical History: Cancer Brother(s) Family Medical History: Diabetes Mellitus General Exam Limitations: no limitations General appearance: alert, in no apparent distress Head exam: Present: atraumatic Eye exam: Present: normal appearance, PERRL ENT exam: Present: normal oropharynx Neck exam: Present: normal inspection Respiratory exam: Present: normal lung sounds bilaterally. Absent: chest wall tenderness Cardiovascular Exam: Present: regular rate, normal rhythm Expanded Peripheral pulses: 2+: Radial (R), Radial (L), Posterior Tibialis (R), Posterior Tibialis (L), Dorsalis Pedis (R), Dorsalis Pedis (L) GI/Abdominal exam: Present: soft. Absent: tenderness Extremities exam: Present: normal inspection. Absent: pedal edema, calf te nderness Neurological exam: Present: alert Psychiatric exam: Present: normal affect, normal mood Skin exam: Present: normal color Course Vital Signs 11/11/18 11/11/18 11/11/18 10:10 10:35 10:40 Temperature 97.6 F Pulse Rate 77 66 60 Respiratory 18 20 15 Rate Blood Pressure 127/81 O2 Sat by Pulse 92 L 97 98 Oximetry 11/11/18 11/11/18 11/11/18 11:01 11:20 11:40 Temperature Pulse Rate 59 L 61 56 L Respiratory 15 21 18 Rate Blood Pressure 139/82 138/85 O2 Sat by Pulse 96 96 98 Oximetry 11/11/18 11/11/18 11:51 13:00 Temperature Pulse Rate 58 L 62 Respiratory 18 20 Rate Blood Pressure 138/85 131/78 O2 Sat by Pulse 98 97 Oximetry EKG Findings - EKG Comments: EKG Findings:: A. fib with rate of 61. QRS 102. QT 374. QTC 376. Normal axis. Incomplete right bundle-branch block. No acute ST change. Medical Decision Making - Medical Decision Making Patient reevaluated and resting comfortably in bed. Patient states symptoms are still only very mild. Patient and family updated on results. Case was discussed in detail with Dr. Dudley and patient was offered admission for further cardiac evaluation. Patient states heis symptoms are related to his hiatal hernia and refuses admission or further evaluation. Patient does request discharge and states he will call [facility] and follow-up with him. - Lab Data Result diagrams: 11/11/18 11:32 11/11/18 11:32 Lab Results 11/11/18 11/11/18 11/11/18 Range/Units 11:32 11:32 11:32 WBC 4.7 (3.8-10.6) k/uL RBC 5.02 (4.30-5.90) m/uL Hgb 15.0 (13.0-17.5) gm/dL Hct 45.9 (39.0-53.0) % MCV 91.4 (80.0-100.0) fL MCH 29.8 (25.0-35.0) pg MCHC 32.6 (31.0-37.0) g/dL RDW 13.9 (11.5-15.5) % Plt Count 117 L (150-450) k/uL Neutrophils % 72 % Lymphocytes % 17 % Monocytes % 5 % Eosinophils % 4 % Basophils % 0 % Neutrophils # 3.4 (1.3-7.7) k/uL Lymphocytes # 0.8 L (1.0-4.8) k/uL Monocytes # 0.3 (0-1.0) k/uL Eosinophils # 0.2 (0-0.7) k/uL Basophils # 0.0 (0-0.2) k/uL PT (9.0-12.0) sec INR (<1.2) APTT (22.0-30.0) sec Sodium 140 (137-145) mmol/L Potassium 4.6 (3.5-5.1) mmol/L Chloride 102 (98-107) mmol/L Carbon Dioxide 31 H (22-30) mmol/L Anion Gap 7 mmol/L BUN 24 H (9-20) mg/dL Creatinine 1.09 (0.66-1.25) mg/dL Est GFR (CKD-EPI)AfAm 72 (>60 ml/min/1.73 sqM) Est GFR (CKD-EPI)NonAf 62 (>60 ml/min/1.73 sqM) Glucose 95 (74-99) mg/dL Calcium 10.2 (8.4-10.2) mg/dL Magnesium 1.6 (1.6-2.3) mg/dL Total Bilirubin 1.4 H (0.2-1.3) mg/dL AST 28 (17-59) U/L ALT 28 (21-72) U/L Alkaline Phosphatase 94 (38-126) U/L Troponin I (0.000-0.034) ng/mL NT-Pro-B Natriuret Pep 1120 pg/mL Total Protein 6.2 L (6.3-8.2) g/dL Albumin 3.9 (3.5-5.0) g/dL Amylase 39 (30-110) U/L Lipase 22 L (23-300) U/L 11/11/18 11/11/18 Range/Units 11:32 11:32 WBC (3.8-10.6) k/uL RBC (4.30-5.90) m/uL Hgb (13.0-17.5) gm/dL Hct (39.0-53.0) % MCV (80.0-100.0) fL MCH (25.0-35.0) pg MCHC (31.0-37.0) g/dL RDW (11.5-15.5) % Plt Count (150-450) k/uL Neutrophils % % Lymphocytes % % Monocytes % % Eosinophils % % Basophils % % Neutrophils # (1.3-7.7) k/uL Lymphocytes # (1.0-4.8) k/uL Monocytes # (0-1.0) k/uL Eosinophils # (0-0.7) k/uL Basophils # (0-0.2) k/uL PT 20.2 H (9.0-12.0) sec INR 2.1 H (<1.2) APTT 34.1 H (22.0-30.0) sec Sodium (137-145) mmol/L Potassium (3.5-5.1) mmol/L Chloride (98-107) mmol/L Carbon Dioxide (22-30) mmol/L Anion Gap mmol/L BUN (9-20) mg/dL Creatinine (0.66-1.25) mg/dL Est GFR (CKD-EPI)AfAm (>60 ml/min/1.73 sqM) Est GFR (CKD-EPI)NonAf (>60 ml/min/1.73 sqM) Glucose (74-99) mg/dL Calcium (8.4-10.2) mg/dL Magnesium (1.6-2.3) mg/dL Total Bilirubin (0.2-1.3) mg/dL AST (17-59) U/L ALT (21-72) U/L Alkaline Phosphatase (38-126) U/L Troponin I <0.012 (0.000-0.034) ng/mL NT-Pro-B Natriuret Pep pg/mL Total Protein (6.3-8.2) g/dL Albumin (3.5-5.0) g/dL Amylase (30-110) U/L Lipase (23-300) U/L - Radiology Data Radiology results: image reviewed (Chest and abdominal x-ray reveal no acute process. 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 Dudley in the next day or 2 for recheck. Please follow-up with your surgeon at [facility] the next couple of days as well. Avoid spicy meals. Eat small meals. Return for increased pain, difficulty breathing, worsening or changing symptoms or any other concerns. Is patient prescribed a controlled substance at d/c from ED?: No Referrals: Tanika Dudley MD [Primary Care Provider] - 1-2 days Time of Disposition: 13:54
[2018-11-11] MEDS ORDERED: ASPIRIN 81 MG PO STA (10:53)
[2018-11-11] MEDS ORDERED: NITROGLYCERIN SL TABS 0.4 MG TAB SUBLINGUAL STA ×3 (10:53)
[2018-11-11 11:49] LABS: Basophils % (A) 0 %; Eosinophils # (A) 0.2 k/uL (0-0.7); Eosinophils % (A) 4 %; HCT 45.9 % (39.0-53.0); Lymphocytes # (A) 0.8 k/uL (1.0-4.8); Lymphocytes % (A) 17 %; MCH 29.8 pg (25.0-35.0); MCHC 32.6 g/dL (31.0-37.0); MCV 91.4 fL (80.0-100.0); Monocytes # (A) 0.3 k/uL (0-1.0); Monocytes % (A) 5 %; Neutrophils # (A) 3.4 k/uL (1.3-7.7); Neutrophils % (A) 72 %; Platelet Count 117 k/uL (150-450); RBC 5.02 m/uL (4.30-5.90); RDW 13.9 % (11.5-15.5); WBC 4.7 k/uL (3.8-10.6)
[2018-11-11 11:58] LABS: INR 2.1 (<1.2); Partial Thromboplastin Time 34.1 sec (22.0-30.0); Prothrombin Time 20.2 sec (9.0-12.0)
[2018-11-11 12:04] LABS: Albumin 3.9 g/dL (3.5-5.0); Calcium 10.2 mg/dL (8.4-10.2); Magnesium 1.6 mg/dL (1.6-2.3); Potassium 4.6 mmol/L (3.5-5.1); Total Bilirubin 1.4 mg/dL (0.2-1.3); Total Protein 6.2 g/dL (6.3-8.2)
--- NOTE | 2018-11-11 12:14 | XR ---
EXAMINATION TYPE: XR chest 2V DATE OF EXAM: 11/11/2018 COMPARISON: Prior chest x-ray dated 09/07/2016, CT chest dated 09/07/2016 HISTORY: Chest pain TECHNIQUE: Frontal and lateral views of the chest are obtained. FINDINGS: Retrocardiac density with air-fluid level is patient intake representative of hiatal hernia, partial intra thoracic stomach. There is eventration of the hemidiaphragms. Prominent lung volumes consistent with patient's underlying COPD. There is no focal air space opacity, pleural effusion, or pneumothorax see n. The cardiac silhouette size is within normal limits. The osseous structures are intact. IMPRESSION: No acute cardiopulmonary process.
--- NOTE | 2018-11-11 12:15 | XR ---
Abdomen HISTORY: Pain and weight loss Abdomen submitted on 2 images Intrathoracic stomach changes are present. No evident pneumoperitoneum or bowel obstruction. There is retained fecal debris throughout the distribution of the colon. There are overlying cardiac leads. N o pathologic calcification. IMPRESSION: Partial intrathoracic stomach.
[2018-11-11 14:02] VITALS: BP 119/75; PULSE 67; RESP 19; TEMP 98.4
== END 2018-11-11 14:02 | disposition home or self-care (01) ==
LOC: EC 09:57
DX: R07.89 Other chest pain (principal); R63.0 Anorexia; I48.91 Unspecified atrial fibrillation; E07.9 Disorder of thyroid, unspecified; Z87.891 Personal history of nicotine dependence; Z87.19 Personal history of other diseases of the digestive system; Z53.29 Procedure and treatment not carried out because of patient's decision for other reasons; Z53.8 Procedure and treatment not carried out for other reasons; Z79.890 Hormone replacement therapy; Z79.82 Long term (current) use of aspirin; Z79.01 Long term (current) use of anticoagulants; Z79.899 Other long term (current) drug therapy
CPT/HCPCS: 36415; 71046; 74018; 80053; 82150; 83690; 83735; 83880; 84484; 85025; 85610; 85730; 93005; 99285

== ENCOUNTER 2018-11-20 10:37 | Inpatient (IN) | payer MEDICARE, BC ==
[2018-11-20] MEDS ORDERED: PANTOPRAZOLE 40 MG/10 ML VIAL IVP STA (11:25)
[2018-11-20] MEDS ORDERED: SODIUM CHLORIDE 0.9% 1,000 ML IV STA ×2 (11:25)
--- NOTE | 2018-11-20 11:29 | ED ---
General Adult HPI - General Chief complaint: Weakness Stated complaint: gen weak Time Seen by Provider: 11/20/18 11:11 Source: patient, family, RN notes reviewed Mode of arrival: wheelchair Limitations: no limitations - History of Present Illness Initial comments: Patient is a pleasant 83-year-old male presenting to the emergency Department with generalized weakness. Symptoms have been worse over the past couple of days. Patient has difficulty getting around and walking. Patient has increased fatigue. Patient has had very limited oral intake over the past 2 days. Patient states he has known history of hiatal hernia. Patient states she is ravinder eduled to see a surgeon at [facility] tomorrow. Patient states the discomfort he has in the epigastric and lower chest region as chronic and unchanged. Patient denies nausea vomiting, just states he has difficulty eating and drinking. Patient was in the emergency department a week ago with problems with hiatal hernia however did not have the weakness at that time. - Related Data Home Medications Medication Instructions Recorded Confirmed Levothyroxine Sodium [Synthroid] 50 mcg PO DAILY 09/13/13 11/20/18 Temazepam 30 mg PO HS 09/13/13 11/20/18 Cholecalciferol [Vitamin D3 (25 2,000 unit PO DAILY 05/24/16 11/20/18 Mcg = 1000 Iu)] Ferrous Sulfate [Iron (65 MG 325 mg PO Q48H 05/24/16 11/20/18 Elemental)] Warfarin [Coumadin] 2.5 mg PO TU 11/20/18 11/20/18 Warfarin [Coumadin] 5 mg PO SUMOWETHFRSA 11/20/18 11/20/18 Previous Rx's Medication Instructions Recorded Pantoprazole Sodium [Protonix] 40 mg PO DAILY #30 tablet. 09/08/16 Allergies Allergy/AdvReac Type Severity Reaction Status Date / Time No Known Allergies Allergy Verified 11/20/18 11:16 Review of Systems ROS Statement: Those systems with pertinent positive or pertinent negative responses have been documented in the HPI. ROS Other: All systems not noted in ROS Statement are negative. Constitutional: Denies: fever Eyes: Denies: eye pain ENT: Denies: ear pain Respiratory: Denies: cough Cardiovascular: Reports: as per HPI Endocrine: Reports: fatigue Gastrointestinal: Reports: as per HPI. Denies: nausea, vomiting Genitourinary: Denies: dysuria Musculoskeletal: Denies: back pain Skin: Denies: rash Neurological: Reports: as per HPI Past Medical History Past Medical History: Atrial Fibrillation, GERD/Reflux, Osteoarthritis (OA), Thyroid Disorder Additional Past Medical History / Comment(s): HIATAL HERNIA, irregular heartbeat, History of Any Multi-Drug Resistant Organisms: None Reported Past Surgical History: Ear Surgery Additional Past Surgical History / Comment(s): STENT X 3 IN LEFT EAR, khadra cat aracts Past Anesthesia/Blood Transfusion Reactions: Motion Sickness Past Psychological History: No Psychological Hx Reported Smoking Status: Former smoker - Past Family History Father Family Medical History: Cancer Brother(s) Family Medical History: Diabetes Mellitus General Exam Limitations: no limitations General appearance: alert, in no apparent distress Head exam: Present: atraumatic Eye exam: Present: normal appearance, PERRL ENT exam: Present: normal oropharynx Neck exam: Present: normal inspection Respiratory exam: Present: normal lung sounds bilaterally Cardiovascular Exam: Present: regular rate, irregular rhythm Expanded Peripheral pulses: 2+: Radial (R), Radial (L), Posterior Tibialis (R), Posterior Tibialis (L) GI/Abdominal exam: Present: soft, tenderness (Mild epigastric tenderness to palpation), normal bowel sounds. Absent: distended, guarding, rebound, rigid, pulsatile mass Extremities exam: Present: normal inspection. Absent: pedal edema, calf tenderness Neurological exam: Present: alert, oriented X3, CN II-XII intact. Absent: motor sensory deficit Expanded Neurological exam: Present: protecting the airway Speech: Present: fluid speech Cranial nerves: EOM's Intact: Normal Motor strength exam: RUE: 5, LUE: 5, RLE: 5, LLE: 5 Eye Response: (4) open spontaneously Motor Response: (6) obeys commands Verbal Response: (5) oriented Psychiatric exam: Present: normal affect, normal mood Skin exam: Present: normal color Course Vital Signs 11/20/18 11/20/18 11/20/18 10:59 11:28 11:30 Temperature 97.4 F L Pulse Rate 91 90 90 Respiratory 18 22 20 Rate Blood Pressure 82/50 89/61 O2 Sat by Pulse 99 92 L Oximetry 11/20/18 11/20/18 11/20/18 11:40 11:50 12:00 Temperature Pulse Rate 94 84 85 Respiratory 19 17 16 Rate Blood Pressure 91/66 89/58 O2 Sat by Pulse 96 Oximetry - Reevaluation(s) Reevaluation #1: 11/20/18 12:59 Patient reevaluated and updated. Patient requests transfer to [facility] where his surgeon is. [facility] (?Dr. Tucker) states they have holds, approximately 40 in the emergency department up to 2 days and does not feel patient would benefit from transfer. I do agree with this. Patient will be admitted here and transfer can be reconsidered and near future. Medical Decision Making - Medical Decision Making Case was discussed with Dr. Dudley, who will admit his patient. - Lab Data Result diagrams: 11/20/18 11:24 11/20/18 11:24 Lab Results 11/20/18 11/20/18 11/20/18 Range/Units 11:24 11:24 11:24 WBC 6.1 (3.8-10.6) k/uL RBC 5.50 (4.30-5.90) m/uL Hgb 17.1 (13.0-17.5) gm/dL Hct 52.0 (39.0-53.0) % MCV 94.5 (80.0-100.0) fL MCH 31.1 (25.0-35.0) pg MCHC 32.9 (31.0-37.0) g/dL RDW 16.3 H (11.5-15.5) % Plt Count 100 L (150-450) k/uL Anisocytosis Slight PT 102.5 H (9.0-12.0) sec INR >10.0 H* (<1.2) APTT 47.8 H (22.0-30.0) sec Sodium 139 (137-145) mmol/L Potassium 4.5 (3.5-5.1) mmol/L Chloride 98 (98-107) mmol/L Carbon Dioxide 24 (22-30) mmol/L Anion Gap 17 mmol/L BUN 72 H (9-20) mg/dL Creatinine 2.32 H (0.66-1.25) mg/dL Est GFR (CKD-EPI)AfAm 29 (>60 ml/min/1.73 sqM) Est GFR (CKD-EPI)NonAf 25 (>60 ml/min/1.73 sqM) Glucose 132 H (74-99) mg/dL Calcium 10.0 (8.4-10.2) mg/dL Phosphorus 4.3 (2.5-4.5) mg/dL Magnesium 1.5 L (1.6-2.3) mg/dL Total Bilirubin 1.7 H (0.2-1.3) mg/dL AST 19 (17-59) U/L ALT 15 L (21-72) U/L Alkaline Phosphatase 100 (38-126) U/L Troponin I (0.000-0.034) ng/mL Total Protein 6.7 (6.3-8.2) g/dL Albumin 4.1 (3.5-5.0) g/dL TSH 2.790 (0.465-4.680) mIU/L 11/20/18 Range/Units 11:24 WBC (3.8-10.6) k/uL RBC (4.30-5.90) m/uL Hgb (13.0-17.5) gm/dL Hct (39.0-53.0) % MCV (80.0-100.0) fL MCH (25.0-35.0) pg MCHC (31.0-37.0) g/dL RDW (11.5-15.5) % Plt Count (150-450) k/uL Anisocytosis PT (9.0-12.0) sec INR (<1.2) APTT (22.0-30.0) sec Sodium (137-145) mmol/L Potassium (3.5-5.1) mmol/L Chloride (98-107) mmol/L Carbon Dioxide (22-30) mmol/L Anion Gap mmol/L BUN (9-20) mg/dL Creatinine (0.66-1.25) mg/dL Est GFR (CKD-EPI)AfAm (>60 ml/min/1.73 sqM) Est GFR (CKD-EPI)NonAf (>60 ml/min/1.73 sqM) Glucose (74-99) mg/dL Calcium (8.4-10.2) mg/dL Phosphorus (2.5-4.5) mg/dL Magnesium (1.6-2.3) mg/dL Total Bilirubin (0.2-1.3) mg/dL AST (17-59) U/L ALT (21-72) U/L Alkaline Phosphatase (38-126) U/L Troponin I <0.012 (0.000-0.034) ng/mL Total Protein (6.3-8.2) g/dL Albumin (3.5-5.0) g/dL TSH (0.465-4.680) mIU/L - Radiology Data Radiology results: image reviewed (Chest x-ray shows known Morgagni hernia. Air fluid levels within the chest. COPD.) Disposition Clinical Impression: Acute renal failure (ARF), Coagulopathy Disposition: ADMITTED IP TO THIS HOSP Is patient prescribed a controlled substance at d/c from ED?: No Referrals: Tanika Dudley MD [Primary Care Provider] - 1-2 days Decision Time: 13:37
[2018-11-20 11:50] LABS: Albumin 4.1 g/dL (3.5-5.0); Magnesium 1.5 mg/dL (1.6-2.3); Phosphorus 4.3 mg/dL (2.5-4.5); Potassium 4.5 mmol/L (3.5-5.1); Total Bilirubin 1.7 mg/dL (0.2-1.3); Total Protein 6.7 g/dL (6.3-8.2)
--- NOTE | 2018-11-20 12:06 | XR ---
EXAMINATION TYPE: XR chest 2V DATE OF EXAM: 11/20/2018 HISTORY: Weakness. REFERENCE: Previous study dated 11/11/2018. FINDINGS: The patient has a known morganii hernia. There are multiple air-fluid levels within the char[address]. Lung volumes are prominent. Heart size upper limits of normal. I could not exclude a small left effus ion. IMPRESSION: 1. COPD. 2. BORDERLINE CARDIOMEGALY. 3. KNOWN MORGANII HERNIA WITH LOOPS OF BOWEL WITHIN THE CHEST. 4. I CANNOT EXCLUDE A SMALL LEFT EFFUSION.
[2018-11-20 12:10] LABS: Anisocytosis Slight; HGB 17.1 gm/dL (13.0-17.5); MCH 31.1 pg (25.0-35.0); MCHC 32.9 g/dL (31.0-37.0); MCV 94.5 fL (80.0-100.0); Mean Platelet Volume 10.4; Platelet Count 100 k/uL (150-450); RDW 16.3 % (11.5-15.5); WBC 6.1 k/uL (3.8-10.6)
[2018-11-20 12:24] LABS: Partial Thromboplastin Time 47.8 sec (22.0-30.0); Prothrombin Time 102.5 sec (9.0-12.0)
[2018-11-20 12:47] LABS: INR >10.0 (<1.2)
[2018-11-20] MEDS ORDERED: PHYTONADIONE 2 MG in SODIUM CHLORIDE 0.9% 50 ML IVPB STA (13:01)
[2018-11-20] MEDS ORDERED: NALOXONE 0.4 MG/ML 1 ML VIAL IV PRN (13:37)
[2018-11-20 13:43] LABS: Band Neutrophils % 24 %; Lymphocytes # (M) 0.49 k/uL (1.0-4.8); Metamyelocytes # (M) 0.06 k/uL (0); Metamyelocytes % 1 %; Monocytes # (M) 0.73 k/uL (0-1.0); Neutrophils % (M) 56 %; Nucleated Red Blood Cells 0 /100 WBC (0-0); Total Cells Counted 200
[2018-11-20] MEDS ORDERED: PANTOPRAZOLE 40 MG/10 ML VIAL IV SCH (13:45)
[2018-11-20] MEDS ORDERED: ACETAMINOPHEN TAB 325 MG TAB PO STA (14:08)
[2018-11-20] MEDS ORDERED: TEMAZEPAM 30 MG CAP PO PRN (16:11)
[2018-11-20] MEDS: IOPAMIDOL-300 CONTRAST 30 ML VIAL (ORAL USE) PO PRN ×2 (16:21→16:54)
[2018-11-20] MEDS: SODIUM CHLORIDE 0.9% 1,000 ML IV SCH (16:56)
--- NOTE | 2018-11-20 18:12 | CT ---
EXAMINATION TYPE: CT abdomen pelvis wo con DATE OF EXAM: 11/20/2018 COMPARISON: Prior CT 09/07/2016 HISTORY: Abdominal pain CT DLP: 570.7 mGycm Automated exposure control for dose reduction was used. TECHNIQUE: Helical acquisition of images from the lung bases through the pelvis. Patient received or al contrast. FINDINGS: Large hiatal hernia with intrathoracic stomach is again seen. Lack of contrast could compro mise sensitivity. LUNG BASES: No significant abnormality is appreciated. AORTA: No significant abnormality is appreciated. LIVER/GB: No significant abnormality is appreciated. PANCREAS: No significant abnormality is seen. SPLEEN: No significant abnormality is seen. ADRENALS: No significant abnormality is seen. KIDNEYS: No significant abnormality is seen. REPRODUCTIVE ORGANS: Calcifications associated with the prostate gland.. URINARY BLADDER: No significant abnormality is seen. BOWEL: There is an umbilical hernia containing a loop of small bowel, the proximal small bowel loops show dilation and are fluid-filled, more distally bowel loops are decompressed. Postop changes are n oted to the bowel in the midabdomen. There is a loop of small bowel anteriorly which shows a focal ou tpouching, possible diverticulum, axial image 41. Extensive diverticular change associated with the s igmoid colon. FREE AIR: No Free Air is visible. ASCITES: Small amount of fluid is present within the pelvis. The rectum is distended, correlate for fecal impaction. PELVIC ADENOPATHY: None visualized. RETROPERITONEAL ADENOPATHY: No Retroperitoneal Adenopathy visible. OSSEOUS STRUCTURES: No significant abnormality is seen. IMPRESSION: POSSIBLE INCARCERATED HERNIA AT THE UMBILICAL LEVEL, RECOMMEND SURGICAL CONSULT, THERE IS SMALL BOWEL OBSTRUCTION AT THIS LEVEL. LACK OF CONTRAST COULD COMPROMISE SENSITIVITY. DIVERTICULOSIS. CORRELATE FOR FECAL IMPACTION. INTRATHORACIC STOMACH, LARGE HIATAL HERNIA AGAIN NOTED. A Red level critical message alert has been initiated for Tanika Dudley MD via the [employer] on 11/20/2018 6:09 PM. This message alert has been sent to Tanika Dudley MD via the preferences provided by the clinician for the receipt of Radiology Critical Findings. Message ID [id number].
[2018-11-20] MEDS: MORPHINE SULFATE 2 MG/ML SYRINGE IVP PRN (19:02)
--- NOTE | 2018-11-20 19:06 | P.GSCN ---
History of Present Illness Consult date: 11/20/18 History of present illness: This 83-year-old male presented a hospital with a chief complaint of abdominal pain periumbilical. He was admitted to the floor with abdominal pain after a computed tomography scan in the ER showed incarceration of an umbilical hernia with small bowel in the umbilical hernia and signs of obstruction. I was consulted when the patient was on the floor and immediately came in to evaluate the patient within 15 minutes of the consult and reduced the hernia. Patient was denying any nausea vomiting at the time. His abdominal pain was minimal. He has multiple medical comorbidities and is on Coumadin for A. fib with an INR greater than 10 at this time. Past Medical History Past Medical History: Atrial Fibrillation, GERD/Reflux, Osteoarthritis (OA), Thyroid Disorder Additional Past Medical History / Comment(s): HIATAL HERNIA, irregular heartbeat, History of Any Multi-Drug Resistant Organisms: None Reported Past Surgical History: Ear Surgery Additional Past Surgical History / Comment(s): STENT X 3 IN LEFT EAR, khadra cataracts Past Anesthesia/Blood Transfusion Reactions: Motion Sickness Past Psychological History: No Psychological Hx Reported Smoking Status: Former smoker Past Alcohol Use History: None Reported Additional Past Alcohol Use History / Comment(s): quit smoking 25 yrs ago, smoked for 25 yrs, 1 1/2 PPD Past Drug Use History: None Reported - Past Family History Father Family Medical History: Cancer Brother(s) Family Medical History: Diabetes Mellitus Medications and Allergies Home Medications Medication Instructions Recorded Confirmed Type Levothyroxine Sodium [Synthroid] 50 mcg PO DAILY 09/13/13 11/20/18 History Temazepam 30 mg PO HS 09/13/13 11/20/18 History Cholecalciferol [Vitamin D3 (25 2,000 unit PO DAILY 05/24/16 11/20/18 History Mcg = 1000 Iu)] Ferrous Sulfate [Iron (65 MG 325 mg PO Q48H 05/24/16 11/20/18 History Elemental)] Pantoprazole Sodium [Protonix] 40 mg PO DAILY #30 tablet. 09/08/16 11/20/18 Rx Warfarin [Coumadin] 2.5 mg PO TU 11/20/18 11/20/18 History Warfarin [Coumadin] 5 mg PO SUMOWETHFRSA 11/20/18 11/20/18 History Allergies Allergy/AdvReac Type Severity Reaction Status Date / Time No Known Allergies Allergy Verified 11/20/18 11:16 Surgical - Exam Osteopathic Statement: *. No significant issues noted on an osteopathic structural exam other than those noted in the History and Physical/Consult. Vital Signs Temp Pulse Resp BP Pulse Ox 97.4 F L 91 18 82/50 99 11/20/18 10:59 11/20/18 10:59 11/20/18 10:59 11/20/18 10:59 11/20/18 10:59 - General well developed, cachectic, chronically ill - Eyes PERRL - Neck trachea midline - Respiratory normal expansion, normal respiratory effort - Cardiovascular Rhythm: regular - Abdomen Mild tenderness palpation periumbilical. There is a umbilical hernia which was reducible l Abdomen: soft - Neurologic normal coordination, normal sensation - Musculoskeletal normal gait - Psychiatric oriented to time, oriented to person, oriented to place Results - Labs 11/20/18 11:24 11/20/18 11:24 Abnormal Lab Results - Last 24 Hours (Table) 11/20/18 11/20/18 11/20/18 Range/Units 11:24 11:24 11:24 RDW 16.3 H (11.5-15.5) % Plt Count 100 L (150-450) k/uL Lymphocytes # (Manual) 0.49 L (1.0-4.8) k/uL Metamyelocytes # (Man) 0.06 H (0) k/uL PT 102.5 H (9.0-12.0) sec INR >10.0 H* (<1.2) APTT 47.8 H (22.0-30.0) sec BUN 72 H (9-20) mg/dL Creatinine 2.32 H (0.66-1.25) mg/dL Glucose 132 H (74-99) mg/dL Magnesium 1.5 L (1.6-2.3) mg/dL Total Bilirubin 1.7 H (0.2-1.3) mg/dL ALT 15 L (21-72) U/L Diabetes panel 11/20/18 Range/Units 11:24 Sodium 139 (137-145) mmol/L Potassium 4.5 (3.5-5.1) mmol/L Chloride 98 (98-107) mmol/L Carbon Dioxide 24 (22-30) mmol/L BUN 72 H (9-20) mg/dL Creatinine 2.32 H (0.66-1.25) mg/dL Glucose 132 H (74-99) mg/dL Calcium 10.0 (8.4-10.2) mg/dL AST 19 (17-59) U/L ALT 15 L (21-72) U/L Alkaline Phosphatase 100 (38-126) U/L Total Protein 6.7 (6.3-8.2) g/dL Albumin 4.1 (3.5-5.0) g/dL Thyroid panel 11/20/18 Range/Units 11:24 TSH 2.790 (0.465-4.680) mIU/L Calcium panel 11/20/18 Range/Units 11:24 Calcium 10.0 (8.4-10.2) mg/dL Phosphorus 4.3 (2.5-4.5) mg/dL Albumin 4.1 (3.5-5.0) g/dL Pituitary panel 11/20/18 Range/Units 11:24 Sodium 139 (137-145) mmol/L Potassium 4.5 (3.5-5.1) mmol/L Chloride 98 (98-107) mmol/L Carbon Dioxide 24 (22-30) mmol/L BUN 72 H (9-20) mg/dL Creatinine 2.32 H (0.66-1.25) mg/dL Glucose 132 H (74-99) mg/dL Calcium 10.0 (8.4-10.2) mg/dL TSH 2.790 (0.465-4.680) mIU/L Adrenal panel 11/20/18 Range/Units 11:24 Sodium 139 (137-145) mmol/L Potassium 4.5 (3.5-5.1) mmol/L Chloride 98 (98-107) mmol/L Carbon Dioxide 24 (22-30) mmol/L BUN 72 H (9-20) mg/dL Creatinine 2.32 H (0.66-1.25) mg/dL Glucose 132 H (74-99) mg/dL Calcium 10.0 (8.4-10.2) mg/dL Total Bilirubin 1.7 H (0.2-1.3) mg/dL AST 19 (17-59) U/L ALT 15 L (21-72) U/L Alkaline Phosphatase 100 (38-126) U/L Total Protein 6.7 (6.3-8.2) g/dL Albumin 4.1 (3.5-5.0) g/dL Assessment and Plan Assessment: Small bowel containing umbilical hernia which was reducible. Diaphragmatic hernia Plan: There was a umbilical hernia which showed signs of incarceration on computed tomography scan this was easily reducible at bedside. Patient had no other signs of strangulation. Patient does have a large diaphragmatic hernia which he is scheduled to be evaluated with cardiothoracic surgery at [facility] tomorrow. I would like to watch the patient overnight given that his hernia was incarcerated for at least 6 hours. He is doing well with no abdominal pain tomorrow he may be discharged from a surgical standpoint. I instructed the patient how to reduce the hernia should it return. I informed him that if the hernia becomes irreducible and tender with nausea and vomiting and signs of obstruction to return to the emergency department immediately.
[2018-11-20] MEDS ORDERED: Magnesium Replacement Protocol 1 EACH MISC MISCELLANE PRN (19:40)
[2018-11-20] MEDS: MAGNESIUM SULFATE-D5W PMX 1 GM in DEXTROSE/WATER 1 100ML.BAG IVPB SCH ×2 (20:19→21:50)
[2018-11-21] MEDS: SODIUM CHLORIDE 0.9% 1,000 ML IV SCH (00:58)
[2018-11-21] MEDS: MORPHINE SULFATE 2 MG/ML SYRINGE IVP PRN (01:00)
[2018-11-21 04:11] VITALS: TEMP 98
[2018-11-21] MEDS ORDERED: LEVOTHYROXINE 50 MCG TAB PO SCH (06:30)
[2018-11-21] MEDS ORDERED: PANTOPRAZOLE 40 MG TABLET PO SCH (07:30)
[2018-11-21 07:57] LABS: Basophils % (A) 0 %; Eosinophils # (A) 0.1 k/uL (0-0.7); Eosinophils % (A) 2 %; HCT 45.7 % (39.0-53.0); HGB 14.6 gm/dL (13.0-17.5); Lymphocytes # (A) 0.5 k/uL (1.0-4.8); Lymphocytes % (A) 16 %; MCH 30.5 pg (25.0-35.0); MCHC 31.9 g/dL (31.0-37.0); MCV 95.4 fL (80.0-100.0); Mean Platelet Volume 8.8; Monocytes # (A) 0.4 k/uL (0-1.0); Monocytes % (A) 11 %; Neutrophils # (A) 2.2 k/uL (1.3-7.7); Neutrophils % (A) 67 %; Platelet Count 107 k/uL (150-450); RDW 15.5 % (11.5-15.5); WBC 3.3 k/uL (3.8-10.6)
[2018-11-21 08:04] LABS: INR 1.7 (<1.2); Prothrombin Time 16.9 sec (9.0-12.0)
[2018-11-21 08:11] LABS: Albumin 3.1 g/dL (3.5-5.0); Calcium 9.2 mg/dL (8.4-10.2); Magnesium 2.2 mg/dL (1.6-2.3); Potassium 4.4 mmol/L (3.5-5.1); Total Bilirubin 1.3 mg/dL (0.2-1.3); Total Protein 5.4 g/dL (6.3-8.2)
[2018-11-21 08:19] VITALS: BP 100/56; PULSE 85; RESP 16
[2018-11-21] MEDS ORDERED: ISOSORBIDE MONONITRATE ER 30 MG TAB.ER.24H PO SCH (09:00)
--- NOTE | 2018-11-21 09:12 | P.HPIM ---
History of Present Illness H&P Date: 11/21/18 This is an 83-year-old male patient presented with complaints of abdominal pain generalized weakness. Patient reports that symptoms have been worsening the past weeks. Per family patient patient has had very limited oral intake over the past 2 days. Denies any diarrhea Patient has a known past medical history of hiatal hernia for the past 15 years and scheduled to see a surgeon at [place] 11:00. Patient reports that his origanal discomfort is in his epigastric and lower chest region. Past medical history of atrial fibrillation, GERD, arthritis, thyroid disorder, and bilateral cataracts. CT of abdomen and pelvis completed showing possible incarcerated hernia. Umbilical level, recomm end surgical consult for small bowel traction at this level. Lack of contrast could compromise consult the diverticulosis. Correlate for fecal impaction, intrathoracic stomach large hiatal hernia again noted. Chest x-ray completed showing COPD. Borderline cardiomegaly. Known morganii hernia with loops of bowel within the chest. I cannot exclude a small left effusion. Surgical services consulted. Creat elevated at 2.32. INR greater than 10. Per surgical services hernia was reduced at bedside. Recommend that if patient does well throughout the night with no abdominal pain or nausea or vomiting he may discharge and follow-up [facility] for cardiothoracic surgical consult due to large sized hernia. At this time family is at bedside. Patient denies any nausea vomiting. Patient denies any abdominal pain. Discussed with family. Patient's family would like patient to be taken to appointment today. Patient denies any chest pain or shortness of breath. Patient denies nausea vomiting or diarrhea. Patient denies abdominal pain patient denies any urinary burning or frequency. Vitals within normal limits Review of Systems please refer to HPI otherwise unremarkable Past Medical History Past Medical History: Atrial Fibrillation, GERD/Reflux, Osteoarthritis (OA), Thyroid Disorder Additional Past Medical History / Comment(s): HIATAL HERNIA, irregular heartbeat, History of Any Multi-Drug Resistant Organisms: None Reported Past Surgical History: Ear Surgery Additional Past Surgical History / Comment(s): STENT X 3 IN LEFT EAR, khadra cataracts Past Anesthesia/Blood Transfusion Reactions: Motion Sickness Past Psychological History: No Psychological Hx Reported Smoking Status: Former smoker Past Alcohol Use History: None Reported Additional Past Alcohol Use History / Comment(s): quit smoking 25 yrs ago, smoked for 25 yrs, 1 1/2 PPD Past Drug Use History: None Reported - Past Family History Father Family Medical History: Cancer Brother(s) Family Medical History: Diabetes Mellitus Medications and Allergies Home Medications Medication Instructions Recorded Confirmed Type Levothyroxine Sodium [Synthroid] 50 mcg PO DAILY 09/13/13 11/20/18 History Temazepam 30 mg PO HS 09/13/13 11/20/18 History Cholecalciferol [Vitamin D3 (25 2,000 unit PO DAILY 05/24/16 11/20/18 History Mcg = 1000 Iu)] Ferrous Sulfate [Iron (65 MG 325 mg PO Q48H 05/24/16 11/20/18 History Elemental)] Pantoprazole Sodium [Protonix] 40 mg PO DAILY #30 tablet. 09/08/16 11/20/18 Rx Warfarin [Coumadin] 2.5 mg PO TU 11/20/18 11/20/18 History Warfarin [Coumadin] 5 mg PO SUMOWETHFRSA 11/20/18 11/20/18 History Allergies Allergy/AdvReac Type Severity Reaction Status Date / Time No Known Allergies Allergy Verified 11/20/18 11:16 Physical Exam Vitals: Vital Signs Temp Pulse Pulse Resp BP BP Pulse Ox 11/21/18 08:00 85 16 100/56 95 11/21/18 04:00 98 F 81 17 100/52 95 11/21/18 00:00 80 17 96/52 95 11/20/18 20:00 97.5 F L 80 17 94/56 96 11/20/18 16:00 97.9 F 87 16 112/72 97 11/20/18 14:00 97.9 F 75 16 96/55 97 11/20/18 12:30 87 18 136/81 96 11/20/18 12:00 85 16 96 11/20/18 11:50 84 17 89/58 11/20/18 11:40 94 19 91/66 11/20/18 11:30 90 20 89/61 92 L 11/20/18 11:28 90 22 11/20/18 10:59 97.4 F L 91 18 82/50 99 Intake and Output 11/20/18 11/21/18 11/21/18 22:59 06:59 14:59 Intake Total 1400 Balance 1400 Intake: Intake, IV Titration 1400 Amount Magnesium Sulfate-D5w Pmx 200 1 gm In Dextrose/Water 1 100ml.bag @ 100 mls/hr IVPB Q1H [facility] Rx#: [id number] Sodium Chloride 0.9% 1, 1200 000 ml @ 100 mls/hr IV . Q10H [facility] Rx#:[id number] Other: Voiding Method Toilet Toilet Urinal Urinal # Voids 1 2 # Bowel Movements 1 1 Weight 74.8 kg Head normocephalic Neck supple Lungs clear to auscultation bilaterally no wheezing or crackles Heart regular rate and rhythm S1-S2, no rub or gallop Abdomen is soft nontender nondistended positive bowel sounds no hepatosplenomegaly Extremities no edema Neuro alert and orientated to 3 Results CBC & Chem 7: 11/21/18 07:40 11/21/18 07:40 Labs: Abnormal Lab Results - Last 24 Hours (Table) 11/20/18 11/20/18 11/20/18 Range/Units 11:24 11:24 11:24 WBC (3.8-10.6) k/uL RDW 16.3 H (11.5-15.5) % Plt Count 100 L (150-450) k/uL Lymphocytes # (1.0-4.8) k/uL Lymphocytes # (Manual) 0.49 L (1.0-4.8) k/uL Metamyelocytes # (Man) 0.06 H (0) k/uL PT 102.5 H (9.0-12.0) sec INR >10.0 H* (<1.2) APTT 47.8 H (22.0-30.0) sec BUN 72 H (9-20) mg/dL Creatinine 2.32 H (0.66-1.25) mg/dL Glucose 132 H (74-99) mg/dL Magnesium 1.5 L (1.6-2.3) mg/dL Total Bilirubin 1.7 H (0.2-1.3) mg/dL AST (17-59) U/L ALT 15 L (21-72) U/L Total Protein (6.3-8.2) g/dL Albumin (3.5-5.0) g/dL 11/21/18 11/21/18 11/21/18 Range/Units 07:40 07:40 07:40 WBC 3.3 L (3.8-10.6) k/uL RDW (11.5-15.5) % Plt Count 107 L (150-450) k/uL Lymphocytes # 0.5 L (1.0-4.8) k/uL Lymphocytes # (Manual) (1.0-4.8) k/uL Metamyelocytes # (Man) (0) k/uL PT 16.9 H (9.0-12.0) sec INR 1.7 H (<1.2) APTT (22.0-30.0) sec BUN 72 H (9-20) mg/dL Creatinine 1.81 H (0.66-1.25) mg/dL Glucose 101 H (74-99) mg/dL Magnesium (1.6-2.3) mg/dL Total Bilirubin (0.2-1.3) mg/dL AST 14 L (17-59) U/L ALT 19 L (21-72) U/L Total Protein 5.4 L (6.3-8.2) g/dL Albumin 3.1 L (3.5-5.0) g/dL Assessment and Plan Assessment: 1. Increased weakness likely due to large hiatal hernia. CT of abdomen and pelvis completed showing possible incarcerated hernia. Local level, recommend surgical consult, there is small bowel obstruction at level lack of contrast could compromise sensitivity diverticulosis correlate for fecal impaction intrathoracic stomach, large hiatal hernia again noted. Patient was evaluated by surgical services and hernia was reduced. Per surgical services patient has no other signs of strangulation and hernia was easily reducible at bedside. Surgical surfaces patient has no abdominal pain tomorrow he may be discharged from surgical standpoint follow-up at [facility] for cardiothoracic surgical evaluation 2. Coagulopathy. Patient maintained on Coumadin for A. fib. INR level greater than 10. Repeat INR this a.m. 1.7 3. Acute kidney injury. Creatinine on admission 2.32 and bun 72. Creatinine improving to 1.81 and bun 72 this AM repeat CMP ordered for tomorrow 4. History of atrial fibrillation. Patient maintained on Coumadin. INR greater than 10 on admit. Repeat INR 1.7 5. History of GERD 6. History of osteoarthritis 7. History of hypothyroidism 8. History of hiatal hernia for greater than 15 years Time with Patient: Greater than 30 (Greater than 60% of the total time spent in counseling and coordination of care. I performed an examination of the patient and discussed their management with the Nurse Practitioner. I have reviewed the Nurse Practitioner's notes and agree with the documented findings and plan of care)
--- NOTE | 2018-11-21 09:17 | P.DS ---
Providers Date of admission: 11/20/18 13:37 Expected date of discharge: 11/21/18 Attending physician: Tanika Dudley Consults: 11/20/18 16:22 Consult Physician Stat Consulting Provider: Nader Saez Consult Reason/Comments: abd pain morgani hernia Do you want consulting provider notified?: Already Contacted Primary care physician: Tanika Dudley [facility] Course: Discharge diagnosis 1. Increased weakness likely due to large hiatal hernia. CT of abdomen and pelvis completed showing possible incarcerated hernia. Local level, recommend surgical consult, there is small bowel obstruction at level lack of contrast could compromise sensitivity diverticulosis correlate for fecal impaction intrathoracic stomach, large hiatal hernia again noted. Patient was evaluated by surgical services and hernia was reduced. Per surgical services patient has no other signs of strangulation and hernia was easily reducible at bedside. Surgical surfaces patient has no abdominal pain tomorrow he may be discharged from surgical standpoint [facility] 2. Coagulopathy. Patient maintained on Coumadin for A. fib. INR level greater than 10. Repeat INR this a.m. 1.7 3. Acute kidney injury. Creatinine on admission 2.32 and bun 72. Creatinine improving to 1.81 and bun 72 this AM repeat CMP ordered for tomorrow 4. History of atrial fibrillation. Patient maintained on Coumadin. INR greater than 10 on admit. Repeat INR 1.7 5. History of GERD 6. History of osteoarthritis 7. History of hypothyroidism 8. History of hiatal hernia for greater than 15 years Hospital course This is an 83-year-old male patient presented with complaints of abdominal pain generalized weakness. Patient reports that symptoms have been worsening the past weeks. Per family patient patient has had very limited oral intake over the past 2 days. Denies any diarrhea Patient has a known past medical history of hiatal hernia for the past 15 years and scheduled to see a surgeon at [place] 11:00. Patient reports that his origanal discomfort is in his epigastric and lower chest region. Past medical history of atrial fibrillation, GERD, arthritis, thyroid disorder, and bilateral cataracts. CT of abdomen and pelvis completed showing possible incarcerated hernia. Umbilical level, juventino mmend surgical consult for small bowel traction at this level. Lack of contrast could compromise consult the diverticulosis. Correlate for fecal impaction, intrathoracic stomach large hiatal hernia again noted. Chest x-ray completed showing COPD. Borderline cardiomegaly. Known morganii hernia with loops of bowel within the chest. I cannot exclude a small left effusion. Surgical services consulted. Creat elevated at 2.32. INR greater than 10. Per surgical services hernia was reduced at bedside. Recommend that if patient does well throughout the night with no abdominal pain or nausea or vomiting he may discharge and follow-up [facility] for cardi[facility] consult due to large sized hernia. At this time family is at bedside. Patient denies any nausea vomiting. Patient denies any abdominal pain. Discussed with family. Patient's family would like patient to be taken to appointment today. Patient denies any chest pain or shortness of breath. Patient denies nausea vomiting or diarrhea. Patient denies abdominal pain patient denies any urinary burning or frequency. Vitals within normal limits Per ER report [facility] Transfer was attempted with patient surgeon Dr. Tucker but did not feel patient would benefit from transfer. Per our surgical team feel that patient is be discharged and follow-up with cardiothoracic surgeon at [facility]. At this time patient denies any chest pain or shortness of breath. Patient denies nausea vomiting or diarrhea. Denies any abdominal pain. Patient denies any urinary burning or frequency creatinine is elevated but improving at 1.81 and bun 72. Patient INR 1.7. Computed tomography scan to be DC'd with patient and taken to cardiothoracic appointment. Discussed plan with patient and family plan to take patient to [facility] appointment. If symptoms worsen or do not improve and patient is not admitted to [facility] have the patient is to return to ER. Patient and family agreeable to plan. Vitals stable at this time. Repeat CMP ordered for tomorrow. I performed an examination of the patient and discussed their management with the Nurse Practitioner. I have reviewed the Nurse Practitioner's notes and agree with the documented findings and plan of care Patient Condition at Discharge: Stable Plan - Discharge Summary New Discharge Prescriptions: Continue Levothyroxine Sodium [Synthroid] 50 mcg PO DAILY Temazepam 30 mg PO HS Cholecalciferol [Vitamin D3 (25 Mcg = 1000 Iu)] 2,000 unit PO DAILY Ferrous Sulfate [Iron (65 MG Elemental)] 325 mg PO Q48H Pantoprazole Sodium [Protonix] 40 mg PO DAILY #30 tablet. Warfarin [Coumadin] 2.5 mg PO TU Warfarin [Coumadin] 5 mg PO Discharge Medication List Levothyroxine Sodium [Synthroid] 50 mcg PO DAILY 09/13/13 [History] Temazepam 30 mg PO HS 09/13/13 [History] Cholecalciferol [Vitamin D3 (25 Mcg = 1000 Iu)] 2,000 unit PO DAILY 05/24/16 [History] Ferrous Sulfate [Iron (65 MG Elemental)] 325 mg PO Q48H 05/24/16 [History] Pantoprazole Sodium [Protonix] 40 mg PO DAILY #30 tablet. 09/08/16 [Rx] Warfarin [Coumadin] 2.5 mg PO TU 11/20/18 [History] Warfarin [Coumadin] 5 mg PO 11/20/18 [History] Follow up Appointment(s)/Referral(s): Tanika Dudley MD [Primary Care Provider] - 1-2 days Ambulatory/Diagnostic Orders: Comprehensive Metabolic Panel [LAB.AMB] Time Frame: 1 Day, Location: None Selected Activity/Diet/Wound Care/Special Instructions: Patient to follow up at [facility] today Diet as tolerated Activity as tolerated. Discharge Disposition: HOME SELF-CARE
== END 2018-11-21 09:38 | disposition home or self-care (01) | DRG 392 ==
LOC: EC 10:37 → 3SCARD 13:37
PROVIDERS: ADMIT Internal Medicine; ATTEND Internal Medicine
DX: K44.9 Diaphragmatic hernia without obstruction or gangrene (principal); K42.0 Umbilical hernia with obstruction, without gangrene; N17.9 Acute kidney failure, unspecified; K21.9 Gastro-esophageal reflux disease without esophagitis; M19.90 Unspecified osteoarthritis, unspecified site; E03.9 Hypothyroidism, unspecified; J44.9 Chronic obstructive pulmonary disease, unspecified; I48.91 Unspecified atrial fibrillation; R79.1 Abnormal coagulation profile; Z79.01 Long term (current) use of anticoagulants; Z79.890 Hormone replacement therapy; Z79.899 Other long term (current) drug therapy; Z87.891 Personal history of nicotine dependence; Z83.3 Family history of diabetes mellitus; Z98.42 Cataract extraction status, left eye; Z98.41 Cataract extraction status, right eye
CPT/HCPCS: 36415; 71046; 74176; 80053; 83735; 84100; 84443; 84484; 85025; 85610; 85730; 93005; 96361; 96374; 99285